=== PATIENT | female | born 1980 | race Caucasian/White ===

== ENCOUNTER 2024-01-03 14:47 | Outpatient (AMB) | payer OTHER, SELFPAY ==
[2024-01-03 14:50] VITALS: BP 144/90; PULSE 79; O2SAT 100; BMI 28.1
--- NOTE | 2024-01-03 14:50 | A.OFFPC_ITS ---
Vital Signs 01/03/24 14:50 Height 5 ft 4 in Weight 164 lb BMI 28.1 BP 144/90 H Blood Pressure Location Lt brachial Position Sitting Pulse 79 Pulse Source Pulse Oximeter Pulse Oximetry (%) 100 Oxygen Delivery Method Room Air Intake Visit Reasons: annual exam/ establish care Rag Boiler Required: No Allergies No Known Allergies Allergy (Verified 01/03/24 15:33) Medication List - Last Reconciled 01/03/24 by Diane Vazquez PA-C leuprolide (Lupron Depot) 3.75 mg IM Q4W levothyroxine 25 mcg PO DAILY norethindrone acetate 5 mg PO BID Tobacco use date assessed: 01/03/24 Dental Screening Dental Screen Date: 01/03/24 Did you have a dental visit in the last 12 months?: Yes Did you have a dental problem in the last 6 months where you did not have access to dental care?: No Was dental information given to patient?: Patient has dentist HPI annual exam/ establish care HPI Details 43-year-old female with no documented [facility] medical history coming to the office for the 1st time. Patient is not known to [place]. Patient did previously follow with PCP in [place] last seen 1 year ago. She did complete her mammogram in May, Pap smear in the last few months and follows routinely with [facility] gynecology. She does have an extensive history of loss and IVF. She follows with [facility] in [place] for fertility care and sees a reproductive DrDenisse Pearson. She also follow up with a counselor florencia every 2 weeks. She did have blood work recently done through [facility] which noted persistently elevated cholesterol. She has no acute concerns today. [facility] Medical History History of in vitro fertilization Uterine polyp Surgical History History of hysteroscopy Family History Mother Diabetes mellitus High cholesterol Father High blood pressure High cholesterol Social History Housing: House Patient Tobacco Use Status: Never used Tobacco service: No Current occupational status: student Current occupation: Cognitive needs: No Hearing needs: No Vision needs: No Female Reproductive History Menstrual control method: pills and progesterone injection Total pregnancies: 4 Ab spontaneous: 4 History of abnormal pap smear: No History of STI: No Date of Mammogram: 05/03/23 History of abnormal mammogram: No Questionnaire PHQ-9 Over the last 2 weeks, how often have you been bothered by any of the following problems? 1. Little interest or pleasure in doing things: not at all 2. Feeling down, depressed, or hopeless: not at all 3. Trouble falling or staying asleep, or sleeping too much: several days 4. Feeling tired or having little energy: not at all 5. Poor appetite or overeating: not at all 6. Feeling bad about yourself - or that you are a failure or have let yourself or your family down: not at all 7. Trouble concentrating on things, such as reading the newspaper or watching television: not at all 8. Moving or speaking so slowly that other people could have noticed. Or the opposite - being so fidgety or restless that you have been moving around a lot more than usual: not at all 9. Thoughts that you would be better off or of hurting yourself in some way: not at all Total score: 1 70397 - PHQ-9 Billing: Yes Source: Developed by Drs. Martin Anthony, Suly Stevenson, Young Braswell and colleagues, with an educational sherine from [employer]. Thrive Questionnaire Date Thrive assessed: 12/28/23 I am a: Patient What is your living situation today?: I have a steady place to live Within the past 12 months, did the food you bought not last and you didn't have the money to get more?: Never true Within the past 12 months, did you worry whether your food would run out before you got money to buy more?: Never true Do you have trouble paying for medicines?: No Do you have trouble getting transportation to medical appointments?: No Do you have trouble paying your heating and electricity bill?: No Do you have trouble taking care of your child, family member or friend?: No Do you have trouble with day-to-day activities such as bathing, preparing meals, shopping, managing finances, etc.?: No Are you currently unemployed and looking for a job?: No Are you interested in more education?: No Please select the resources that you would like help with: None THRIVE Score: 0 AUDIT C Alcohol Use Questionnaire (AUDIT-C) 1. How often do you have a drink containing alcohol?: Never 2. How many drinks containing alcohol do you have on a typical day when you are drinking?: 1 or 2 3. How often do you have six or more drinks on one occasion?: Never Total Score: 0 DOLLY-7 AMB Questionnaire DOLLY-7 Date DOLLY - 7 assessed: 01/03/24 Feeling nervous, anxious, or on edge: 0 = Not at all Not being able to stop or control worryin = Not at all Worrying too much about different things: 0 = Not at all Trouble relaxin = Not at all Being so restless that it is hard to sit still: 0 = Not at all Becoming easily annoyed or irritable: 0 = Not at all Feeling afraid as if something awful might happen: 0 = Not at all Total DOLLY-7 score (0-4 normal; 5-9 mild; 10-14 moderate; 15-21 severe): 0 Source: Developed by Drs. Martin Anthony, Suly Stevenson, Young Braswell and colleagues, with an educational sherine from [employer]. DOLLY-7 Assessment Billing DOLLY-7 Assessment Tool: DOLLY-7 Assessment 43930 Review of Systems Const Denies body aches, Denies chills, Denies fever(s), Denies headache(s) and Denies poor appetite Eyes Reports no additional complaints ENT Denies dysphagia, Denies dizziness, Denies headache(s) and Denies odynophagia Card Denies chest pain, Denies syncope, Denies edema, Denies irregular heart rhythm, Denies lightheadedness and Denies dyspnea Resp Denies cough and Denies dyspnea GI Denies abdominal pain, Denies constipation, Denies dysphagia, Denies diarrhea, Denies nausea, Denies odynophagia and Denies vomiting Reports no additional complaints Musc Reports no additional complaints and Denies abnormal gait Skin/Breast Reports system reviewed and no additional complaints, except as documented Neuro Denies abnormal gait, Denies dizziness, Denies syncope and Denies headache(s) Psych Reports no additional complaints Physical exam (Primary Care) Vital Signs: Last Vital Signs Pulse 79 01/03/24 14:50 BP 144/90 H 01/03/24 14:50 Pulse Ox 100 01/03/24 14:50 Oxygen Delivery Method Room Air 01/03/24 14:50 BMI result Body Mass Index 28.1 Tobacco/Smoking Status: Tobacco use Status Tobacco use date assessed 01/03/24 01/03/24 14:51 Patient Tobacco Use Status Never used Tobacco 01/03/24 14:51 PHQ-9: PHQ-9 Score PHQ-9: Total score 1 01/03/24 15:01 Thrive Assessment: Date of Thrive Assessment Date Thrive assessed 12/28/23 01/03/24 14:51 Const General: cooperative, healthy appearing, comfortable and no acute distress Orientation/consciousness: patient oriented x3 HENMT Head: Yes normocephalic Ears: hearing grossly normal bilaterally General nose exam: Normal external nose present Eyes General: appearance normal, both eyes and all related structures Conjunctivae: conjunctivae normal Neck Neck: Yes full ROM and Yes no lymphadenopathy Resp Effort & Inspection: normal respiratory effort Auscultation: clear to auscultation bilaterally, no crackles, no rales, no rhonchi and no wheezes Cardio Rate: regular rate Rhythm: regular rhythm Skin General skin exam: no rashes or lesions noted Neuro General: patient oriented x3 Gait exam (Neuro): Normal gait present Extrem General: Yes normal to inspection, Yes full ROM and No edema Psych Affect: normal affect Attitude: cooperative Insight: Good insight present (Psych) Judgement: Good judgement present (Psych) Assessment and Plan Assessment & Plan (1) Hypercholesterolemia: Code(s): E78.00 - Pure hypercholesterolemia, unspecified Plan: Cholesterol was elevated on last labs. Referral placed for diet and nutrition and we will redraw labs prior to next appointment. Avoid foods that are high in cholesterol such as red meat, fried foods, eggs and baked goods. Triglyceride goal of less than 150 and LDL goal of less than 130. (2) Endometriosis: Code(s): N80.9 - Endometriosis, unspecified Plan: Continue to follow with gynecology. (3) Anxiety: Code(s): F41.9 - Anxiety disorder, unspecified Plan: Continue to follow with counselor. Has a history of being treated with Zoloft however is avoiding prior to . Does have occasional difficulty sleeping due to anxiety and we will try hydroxyzine as needed. (4) Elevated blood pressure reading: Code(s): R03.0 - Elevated blood-pressure reading, without diagnosis of hypertension Plan: Patient had elevated blood pressure today in the office and mentioned her blood pressure is typically within normal limits when she takes it at home. Advised patient to get a blood pressure cuff and routinely take her blood pressure every other day and re-evaluate at next appointment. Avoid salt intake and encourage healthy diet and regular exercise. Plan This note was constructed using voice recognition software. While every effort has been made to ensure accuracy and research technician, still areas may have been included sometimes these areas may affect the content or meeting of the given symptoms. Total time spent caring for the patient today was 30 minutes. This includes time spent before the visit reviewing the chart, time spent during the visit, and time spent after the visit and documentation. Orders: Orders Lipid Panel 1 Month Z00.00 - Encounter for general adult medical examination without abnormal findings Referrals Nutrition/Dietitian Referral E78.00 - Pure hypercholesterolemia, unspecified Optometry Referral Z00.00 - Encounter for general adult medical examination without abnormal findings Medications: New hydroxyzine HCl 25 mg PO BEDTIME PRN 20 tabs 0RF anxiety Coding Level of Care Code New Pt Level 4 (77883) Diagnoses Hypercholesterolemia E78.00 Endometriosis N80.9 Anxiety F41.9 Elevated blood pressure reading R03.0 Additional Codes DOLLY-7 Assessment Billing - DOLLY-7 Assessment Tool: DOLLY-7 Assessment 37304 ([id number])
== END 2024-01-03 16:04 | disposition home or self-care (01) ==
DX: E78.00 Pure hypercholesterolemia, unspecified (principal); N80.9 Endometriosis, unspecified; F41.9 Anxiety disorder, unspecified; R03.0 Elevated blood-pressure reading, without diagnosis of hypertension
CPT/HCPCS: 96127; 99204

== ENCOUNTER 2024-02-02 09:52 | Outpatient (AMB) | payer OTHER, SELFPAY ==
[2024-02-02 09:54] VITALS: BP 140/72; PULSE 109; O2SAT 97; BMI 28.3
--- NOTE | 2024-02-02 09:54 | MHC.PC.OV ---
Vital Signs 02/02/24 09:54 Height 5 ft 4 in Weight 165 lb BMI 28.3 BP 140/72 H Blood Pressure Location Lt brachial Position Sitting Pulse 109 H Pulse Source Pulse Oximeter Pulse Oximetry (%) 97 Oxygen Delivery Method Room Air Intake Visit Reasons: Annual Exam Chargemaster Specialist Required: No Allergies No Known Allergies Allergy (Verified 02/02/24 09:54) Medication List - Last Reconciled 02/02/24 by Diane Vazquez PA-C hydroxyzine HCl 25 mg PO BEDTIME PRN leuprolide (Lupron Depot) 3.75 mg IM Q4W levothyroxine 25 mcg PO DAILY norethindrone acetate 5 mg PO BID Tobacco use date assessed: 01/03/24 Dental Screening Dental Screen Date: 01/03/24 Did you have a dental visit in the last 12 months?: Yes Did you have a dental problem in the last 6 months where you did not have access to dental care?: No Was dental information given to patient?: Patient has dentist HPI Annual Exam HPI Details 43-year-old female with past medical history of hypercholesterolemia and anxiety last seen December 2023 coming in for annual exam. Patient states she was referred to parts administrator at [facility] to make her 1st appointment so rescheduled to later this month for management of elevated cholesterol. She is currently working with a fertility clinic in [place] and will be undergoing treatment this March and will be started on several different medications at that time. Also mentions on her last pelvic ultrasound they found a polyp on her uterus and will be undergoing hysteroscopy through her fertility clinic in the upcoming months. [facility] Medical History History of in vitro fertilization Uterine polyp Surgical History History of hysteroscopy Family History Mother Diabetes mellitus High cholesterol Father High blood pressure High cholesterol Social History Housing: House Patient Tobacco Use Status: Never used Tobacco service: No Current occupational status: student Current occupation: Cognitive needs: No Hearing needs: No Vision needs: No Questionnaire PHQ-9 Over the last 2 weeks, how often have you been bothered by any of the following problems? 1. Little interest or pleasure in doing things: not at all 2. Feeling down, depressed, or hopeless: not at all 3. Trouble falling or staying asleep, or sleeping too much: several days 4. Feeling tired or having little energy: not at all 5. Poor appetite or overeating: not at all 6. Feeling bad about yourself - or that you are a failure or have let yourself or your family down: not at all 7. Trouble concentrating on things, such as reading the newspaper or watching television: not at all 8. Moving or speaking so slowly that other people could have noticed. Or the opposite - being so fidgety or restless that you have been moving around a lot more than usual: not at all 9. Thoughts that you would be better off or of hurting yourself in some way: not at all Total score: 1 64118 - PHQ-9 Billing: Yes Source: Developed by Drs. Martin Anthony, Suly Stevenson, Young Braswell and colleagues, with an educational sherine from [employer]. Thrive Questionnaire Date Thrive assessed: 12/28/23 I am a: Patient What is your living situation today?: I have a steady place to live Within the past 12 months, did the food you bought not last and you didn't have the money to get more?: Never true Within the past 12 months, did you worry whether your food would run out before you got money to buy more?: Never true Do you have trouble paying for medicines?: No Do you have trouble getting transportation to medical appointments?: No Do you have trouble paying your heating and electricity bill?: No Do you have trouble taking care of your child, family member or friend?: No Do you have trouble with day-to-day activities such as bathing, preparing meals, shopping, managing finances, etc.?: No Are you currently unemployed and looking for a job?: No Are you interested in more education?: No Please select the resources that you would like help with: None Currently or been in a relationship where the following occur: No concerns reported THRIVE Score: 0 AUDIT C Alcohol Use Questionnaire (AUDIT-C) 1. How often do you have a drink containing alcohol?: Never 2. How many drinks containing alcohol do you have on a typical day when you are drinking?: 1 or 2 3. How often do you have six or more drinks on one occasion?: Never Total Score: 0 DOLLY-7 AMB Questionnaire DOLLY-7 Date DOLLY - 7 assessed: 01/03/24 Feeling nervous, anxious, or on edge: 1 = Several days Not being able to stop or control worryin = Several days Worrying too much about different things: 1 = Several days Trouble relaxin = Several days Being so restless that it is hard to sit still: 0 = Not at all Becoming easily annoyed or irritable: 0 = Not at all Feeling afraid as if something awful might happen: 1 = Several days Total DOLLY-7 score (0-4 normal; 5-9 mild; 10-14 moderate; 15-21 severe): 5 Source: Developed by Drs. Martin Anthony, Suly Stevenson, Young Braswell and colleagues, with an educational sherine from [employer]. DOLLY-7 Assessment Billing DOLLY-7 Assessment Tool: DOLLY-7 Assessment 15083 Review of Systems Const Denies body aches, Denies fatigue, Denies fever(s), Denies frequent falls, Denies headache(s) and Denies weakness Eyes Reports no additional complaints and Denies change in vision ENT Denies dysphagia, Denies dizziness, Denies facial pain, Denies headache(s), Denies nasal congestion and Denies odynophagia Card Denies chest pain, Denies syncope, Denies irregular heart rhythm, Denies leg edema, Denies lightheadedness and Denies dyspnea Resp Denies cough and Denies dyspnea GI Denies constipation, Denies dysphagia, Denies dyspepsia, Denies diarrhea, Denies nausea, Denies odynophagia and Denies vomiting Denies urinary frequency, Denies dysuria, Denies urinary hesitancy and Denies urinary urgency Musc Denies back pain and Denies myalgias Skin/Breast Reports system reviewed and no additional complaints, except as documented Neuro Denies dizziness, Denies syncope, Denies frequent falls, Denies headache(s) and Denies weakness Psych Reports no additional complaints Endo Denies fatigue Physical exam (Primary Care) Vital Signs: Last Vital Signs Pulse 109 H 02/02/24 09:54 BP 140/72 H 02/02/24 09:54 Pulse Ox 97 02/02/24 09:54 Oxygen Delivery Method Room Air 02/02/24 09:54 BMI result Body Mass Index 28.3 Tobacco/Smoking Status: Tobacco use Status Tobacco use date assessed 01/03/24 02/02/24 09:54 Patient Tobacco Use Status Never used Tobacco 02/02/24 09:54 PHQ-9: PHQ-9 Score PHQ-9: Total score 1 02/02/24 10:53 Thrive Assessment: Date of Thrive Assessment Date Thrive assessed 12/28/23 02/02/24 09:54 Currently or been in a relationship where the following occur: No concerns reported Const General: cooperative, healthy appearing, comfortable and no acute distress Orientation/consciousness: patient oriented x3 HENMT Head: Yes normocephalic Ears: hearing grossly normal bilaterally, external ears normal, TM's normal bilaterally and EAC's normal General nose exam: Normal external nose present Face and sinus: Yes normal facial exam and Yes sinuses nontender Mouth: Normal oral and palatal mucosa present and tongue normal Throat: Yes posterior oropharynx normal Eyes General: appearance normal, both eyes and all related structures Conjunctivae: conjunctivae normal Pupils: Equal, round and reactive pupils present EOM: EOMs intact bilaterally and No Nystagmus present Neck Neck: Yes normal visual inspection, Yes full ROM and Yes no lymphadenopathy Chest Chest palpation & inspection: normal inspection of the chest Resp Effort & Inspection: normal respiratory effort Auscultation: clear to auscultation bilaterally, no crackles, no rales, no rhonchi, no wheezes and breath sounds present Cardio Rate: regular rate Rhythm: regular rhythm Peripheral pulses: radial pulses present and dorsalis pedis present GI Inspection: Yes normal to inspection and No Abdominal wall edema Palpation (GI): Soft to palpation, not firm and nontender Auscultation: normal bowel sounds Rectal Exam - Female: deferred General: Yes no CVA tenderness Back/Spine/Pelvis Back: no CVA tenderness Skin General skin exam: no rashes or lesions noted Neuro General: patient oriented x3 Cranial nerves: Yes Equal, round and reactive pupils present, Yes Midline tongue present, Yes Ability to bilaterally elevate shoulders present and No Nystagmus present Gait exam (Neuro): Normal gait present Extrem General: Yes normal to inspection, Yes full ROM, No no pedal edema and No edema Psych Speech and movement: Normal speech and movement present Affect: normal affect Insight: Good insight present (Psych) Judgement: Good judgement present (Psych) Coding Level of Care Code Est Pt Level 3 (22501) Est Pt Prev Care 40-64y(56335) Diagnoses Elevated blood pressure reading R03.0 Annual physical exam Z00.00 Anxiety F41.9 Hypercholesterolemia E78.00 Elevated LFTs R79.89 Additional Codes DOLLY-7 Assessment Billing - DOLLY-7 Assessment Tool: DOLLY-7 Assessment 69736 ([id number]) Assessment & Plan Assessment & Plan (1) Elevated blood pressure reading: Code(s): R03.0 - Elevated blood-pressure reading, without diagnosis of hypertension Category: Medical Plan: Blood pressure mildly elevated even when retaken today. Patient states blood pressures at home have been within normal limits and only elevated in the office. Follow up in 3 months with log of blood pressures to guide further management. (2) Annual physical exam: Code(s): Z00.00 - Encounter for general adult medical examination without abnormal findings Category: Medical Plan: Patient is up-to-date on all recommended routine screenings and vaccinations for her age. Blood work is updated and has been addressed during this visit. (3) Anxiety: Code(s): F41.9 - Anxiety disorder, unspecified Category: Medical Plan: Patient has not used hydroxyzine as she was concerned about side effects. Side effects were reviewed with patient during this visit and she will take as needed and monitor for symptoms. (4) Hypercholesterolemia: Code(s): E78.00 - Pure hypercholesterolemia, unspecified Category: Medical Plan: Avoid foods that are high in cholesterol such as red meat, fried foods, eggs and baked goods. Triglyceride goal of less than 150 and LDL goal of less than 130. Triglycerides at goal on last labs and LDL elevated above goal. Discussed possible options for treatment however patient is actively trying to become and advised to ask fertility doctor to guide further management. Patient will meet with parts administrator for further management as well. (5) Elevated LFTs: Code(s): R79.89 - Other specified abnormal findings of blood chemistry Category: Medical Plan: Patient believes the elevated liver function tests are due to the Lupron shot. She is having repeat liver function tests in 1 month through her fertility clinic and would like to defer the abdominal ultrasound until that time. Did discuss with patient if LFTs continue to be elevated recommend ultrasound with hepatitis panel. Plan This note was constructed using voice recognition software. While every effort has been made to ensure accuracy and asphalt paving supervisor, still areas may have been included sometimes these areas may affect the content or meeting of the given symptoms. Total time spent caring for the patient today was 30 minutes. This includes time spent before the visit reviewing the chart, time spent during the visit, and time spent after the visit and documentation. Orders: Orders Lipid Panel 3 Months Z00.00 - Encounter for general adult medical examination without abnormal findings
== END 2024-02-02 10:29 | disposition home or self-care (01) ==
DX: Z00.00 Encounter for general adult medical examination without abnormal findings (principal); R03.0 Elevated blood-pressure reading, without diagnosis of hypertension; F41.9 Anxiety disorder, unspecified; E78.00 Pure hypercholesterolemia, unspecified

== ENCOUNTER → 2024-02-02 09:52 | Outpatient (BNVA) | payer OTHER, SELFPAY | DX: Z00.01 Encounter for general adult medical examination with abnormal findings (principal); R03.0 Elevated blood-pressure reading, without diagnosis of hypertension; F41.9 Anxiety disorder, unspecified; E78.00 Pure hypercholesterolemia, unspecified; R79.89 Other specified abnormal findings of blood chemistry | CPT/HCPCS: 96127 ==

== ENCOUNTER 2024-02-15 10:49 | Outpatient (AMB) | payer OTHER, SELFPAY ==
[2024-02-15 10:58] VITALS: BMI 26.4
--- NOTE | 2024-02-15 10:58 | A.OFFVIS_ITS ---
VS Expanded 02/15/24 10:58 02/22/24 09:12 Height 5 ft 7 in 5 ft 7 in Weight 168 lb 10.458 oz 169 lb BMI 26.4 26.5 Intake Visit Reasons: Pure hypercholesterolemia, unspecified Allergies No Known Allergies Allergy (Verified 02/02/24 09:54) Nutrition Presentation Details: Pt presents for MNT for hypercholesterolemia Pt reports having a variety of foods, home made meals/fast food meals BS Monitoring Most Recent Diabetes Results: No Data to Display DIH-Uzuvhcp-Fn.Jeor Equation Height: 5 ft 7 in Weight: 169 lb Resting Metabolic Rate: 1451.95 Calculated Activity Level: Sedentary Calories Needed to Maintain Weight: 1742.34 Diagnosis Nutrition problem #1: food nutri know defi As related to (etiology) #1: diagnosis As evidenced by (sign/symptom) #1: knowledge deficit of diet [facility] Medical History History of in vitro fertilization Uterine polyp Surgical History History of hysteroscopy Family History Mother Diabetes mellitus High cholesterol Father High blood pressure High cholesterol Social History Housing: House Patient Tobacco Use Status: Never used Tobacco service: No Current occupational status: student Current occupation: Cognitive needs: No Hearing needs: No Vision needs: No Assessment & Plan Assessment & Plan (1) Hypercholesterolemia: Code(s): E78.00 - Pure hypercholesterolemia, unspecified Category: Medical Plan: Wt: 77 Kg (02/21) Est kcal needs as per MSJ: 1700 (40% carb, 30% protein/fat) Est fluid needs as per 25-30 ml/d: 2300 Est prot per day as per 1 g/kg bw: 77 Recommend fiber intake : 8-10 g per day and gradually increase to 25-28 g per day for women and 35-38 g for men or as tolerated Recommend sodium intake per day : less than 2300 mg Educated patient on: ( R = reviewed V = verbalizes understanding N/R = needs review N/A = not applicable * Food sources of carbohydrate, adequate serving sizes and its role in various health conditions: R V N/R * Differences between complex carbohydrates a simple carbohydrates, role of fiber in diet: R V N/R * Lean protein sources of foods: R * Differences between types of fats and role in diet (mono on saturated fat fatty acids, saturated fatty acids, trans fats): R * Food sources of sodium in salt and healthy modifications for heart health in kidney health: R V R/V * Vitamins and minerals: R V N/R * Healthy plate method concept: R * Physical activity: Benefits a precaution: R V N/R Patient Instructions: Choose baked/steamed foods in place of deep fried HAve fish twice a week replacing beef/pork Have water with meals , fruit/herb infused water , reducing on sugary beverages see meal plan ideas low in fat and high fiber keep a food record Coding Level of Care Code Nutr Indiv Intake (42865) Diagnoses Hypercholesterolemia E78.00 Time Spent (min) 30
[2024-02-29 12:06] VITALS: BMI 26.5
== END 2024-02-15 11:40 | disposition home or self-care (01) ==
PROVIDERS: Visit Provider Dietitian, Registered
DX: E78.00 Pure hypercholesterolemia, unspecified (principal)

== ENCOUNTER → 2024-02-15 10:49 | Outpatient (BNVA) | payer OTHER, SELFPAY | PROVIDERS: Visit Provider Dietitian, Registered | DX: E78.00 Pure hypercholesterolemia, unspecified (principal); Z71.3 Dietary counseling and surveillance | CPT/HCPCS: 97802 ==

== ENCOUNTER 2024-06-21 08:54 | Outpatient (REF) | payer OTHER, SELFPAY ==
--- OUTSIDE RECORDS SUMMARY | 2024-06-21 09:16 | XMS_ITS | Patient Health Record ---
Author Organization [facility] Offi ce Address [address] [place] [address] Care Team Providers Care Line Fisher Name Role Phone Annalise Quesada Unavailable [phone] Allergies No Known Allergies Reason For Referral No Information Medications Medication SIG (Take, Route, Fr equency, Duration) Notes Start Date End Date Status predniSONE 10 MG 1 tablet Orally Once a day Active Orilissa 200 MG 1 tablet Orally Twice a day Active Letrozole 2.5 MG 1 tablet Orally Once a day Active Ativan 0.5 MG 1 tablet at bedtime as needed Orally Once a day prn Active metFORMIN HCl ER 500 MG 1 tablet with ev ening meal Orally Once a day Active Problems Problem Type SNOMED Code ICD Code Onset Dates Problem Status W/U Status Risk Notes Problem Urinary tract infectious disease (disorder) (32227180) Urinary tract infection, site not specified (N39.0) Active confirmed Problem Chronic uterine inflammatory disease (792290376) Chronic inflammatory disease of uterus (N71.1) Active confirmed Problem Excessive and frequent menstruation (331047100) Excessive and frequent menstruation with regular cycle (N92.0) Active confirmed Problem Irregular Menstruation (12950240) Other specified irregular menstruation (N92.5) Active confirmed Plan Of Treatment Pending Test Test Name Order Date Urine Test (In House) 11/24/19 22 ULTSND 1st TRI (TV) 02/04/2022 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
--- OUTSIDE RECORDS SUMMARY | 2024-06-21 09:16 | XMS_ITS | Continuity of Care Document ---
Author Organization [facility] Address [address] [place] [address] Phone Care Team Providers Care Demand Manager Name Role Phone Jeferson Vang MD Unavailable [...] For Reporting Only 3 Offic/outpt E&m Estab [facility]-or 2 12 Offic/outpt E&m Estab Minor 10 12 Cl Follow Up Determ Refractive State Offic/outpt E&m Estab Low-[facility] 2 Cl Follow Up Cl Follow Up Ophth Serv Med Exam Comp Est Toric Gas Perm Determ Refractive State Ua Dip Stik/tablet; Wo Micro A 11 Preven Meds E&m Estab Pt; 18-3 11 Offic/outpt E&m Estab [facility] 2 11 Offic/outpt E&m Estab [facility] 2 11 Offic/outpt [facility] Offic/outpt E&m Estab [facility] 2 10 Offic/outpt E&m Est[facility] Offic/outpt E&m Estab Low-mod 9 Offic/outpt E&m Estab Low-mod 9 Offic/outpt E&m Estab Low-mod 9 Offic/outpt E&[facility] Est[facility] 9 Offic/outpt E&[facility] 9 Cl Follow Up Cl Follow Up [...] Date Provider Providers Copied on Encounter [facility], [address] [place] [address], [facility], tel:[phone] Primary Care [facility] No Information 5 Ciera Govea. [facility], [address] [place] [address], [id number], [place]. tel:[phone] [facility], [address] [place] [address], [facility], [place] tel:[phone] Primary Care [facility] Lydia No Information 5 No Information Offic/outpt E&m Estab Mod-hi 2 [facility], [address] [place] [address], [facility], [place] tel:[phone] Primary Care [facility] [place] Insomnia (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) AnxietyInsom moriah 5 No Information Offic/outpt E&m Estab Low-mod [facility], [address] [place] [address], [facility], [place] tel:[phone] Primary Care [facility] [place] Anxiety (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) Body Mass Index between 19-24,Anxiet y 5 Reuben Fraga. [facility], [address] [place] [address], [id number], [place]. tel:[phone] Offic/outpt E&m Estab 5 Min [facility], [address] [place] [address], [facility], [place] tel:[phone] Primary Care [facility] [place] Flu vaccine need 4 No Information [facility], [address] [place] [address], [id number], [place] tel:[phone] Primary Care [facility] [place] Routine Medical Exam 4 No Information Offic/outpt E&m Estab Mod-hi 2 [facility], [address] [place] [address], [facility], [place] tel:[phone] Primary Care [facility] [place] wrist pain (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) Wrist painBody Mass Index between 19-24, 4 No Information [facility], [address] [place], [address], [place] tel:[phone] [facility] [place] No Information 4 No Information Offic/outpt E&m Estab Mod-hi 2 [facility], [address] [place] [address], [address], [place] tel:[phone] Primary [facility] [place] foot complaint (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) Left foot painScreenin g for condition 4 No Information Offic/outpt E&m Estab Mod-hi 2 [facility], [address] [place] [address], [address], [place] tel:[phone] Primary [facility] [place] discuss stopping medications (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)danielle int pain (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) AnxietyMulti ple joint pain 4 No Information [facility], [address] [place] [address], [address], [place] tel:[phone] [facility] [place] Astigmatism 3 No Information [facility], [address] [place] [address], [address], [place] tel:[phone] [facility] [place] Astigmatism 3 No Information [facility], [address] [place] [address], [address], [place] tel:[phone] [facility] [place] Astigmatism 3 No Information Preven Meds E&m Estab Pt; 18-3 [facility], [address] [place] [address], [address], [place] tel:[phone] [facility] [place] physical exam (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) Routine Medical ExamBody Mass Index between 19-24,Anxiet y State NosRoutine Medical Exam 3 No Information Offic/outpt E&m Estab Mod-hi 2 [facility], [address] [place] [address], [address], [place] tel:[phone] Primary [facility] [place] depression (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) Depression with anxiety 2 No Information [facility], [address] [place] [address], [address], [place] tel:[phone] Primary Care [facility] [place] Vitamin D deficiency 2 No Information Offic/outpt E&m Estab Minor 10 [facility], [address] [place] [address], [facility], [place] tel:[phone] [facility] Astigmatism 2 No Information Offic/outpt E&m Estab Low-mod [facility], [address] [place] [address], [facility], [place] tel:[phone] Urgent Care upper respiratory symptoms (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) Acute Sinusitis NosBody Mass Index between 19-24, 2 Arnulfo Nava. [facility], [address] [place] [address], [id number], [place]. tel:[phone] [facility], [address] [place] [address], [facility], [place] tel:[phone] [facility] [place] Astigmatism 2 No Information [facility], [address] [place] [address], [facility], [place] tel:[phone] [facility] [place] Astigmatism 1 No Information [facility], [address] [place] [address], [facility], [place] tel:[phone] [facility] Astigmatism 1 No Information Preven Meds E&m Estab Pt; 18-[address], [facility], [place] tel:[phone] Primary Care [facility] Square physical exam (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) Routine Medical ExamRoutine Medical ExamJoint Pain-shlderA nxiety State Nos 1 No Information Offic/outpt E&m Estab Mod-hi 2 [facility], [address] [place] [address], [facility], [place] tel:[phone] Primary Care [facility] [place] depression (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) No Information 1 No Information Offic/outpt E&m Estab Mod-hi 2 [facility], [address] [place] [address] [place], [address], [place] tel:[phone] Primary [facility] [place] depression (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) Depressive Disorder NecFamily Planning Advice 1 No Information Offic/outpt E&m Estab [facility], [address] [place] [address], [address], [place] tel:[phone] Primary [facility] [place] med for menstraul cramps (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)sk in disorder (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) No Information 0 No Information Offic/outpt E&m Estab [address], [address] [place] [address], [address], [place] tel:[phone] [facility] [place] anxiety (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)PA P test (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) No Information 0 No Information Offic/outpt E&m Estab [facility], [address] [place] [address], [facility], [place] tel:[phone] [facility] [place] anxiety (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) No Information 0 No Information Offic/outpt E&m Estab [facility], [address] [place] [address], [facility], [place] tel:[phone] [facility] [place] anxiety (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) No Information 9 No Information Offic/outpt E&m Estab [facility], [address] [place] [address], [facility], [place] tel:[phone] [facility] [place] anxiety (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) No Information 9 No Information Offic/outpt E&m Estab [facility], [address] [place] [address], [address], [place] tel:[phone] [facility] [place] 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) No Information 9 No Information Offic/outpt E&m Estab [facility], [address] [place] [address], [address], [place] tel:[phone] [facility] [place] anxiety (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) No Information Mat-2 4-200 9 No Information Offic/outpt E&m Estab Low-mod [facility], [address] [place] [address], [facility], tel:[phone] [facility] [place] FVC (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) No Information 2 6200 9 No Information [facility], [address] [place] [address], [facility], tel:[phone] [facility] [place] No Information Jan-2 0-200 8 No Information [facility], [address] [place] [address], [facility], [place] tel:[phone] [facility] [place] No Information Jan-0 6200 8 No Information [facility], [address] [place] [address], [facility], [place] tel:[phone] [facility] [place] No Information Sep-0 8200 8 No Information Offic/outpt E&m Estab Minor 10 [facility], [address] [place] [address], [facility], tel:[phone] [facility] [place] No Information 2 2200 8 No Information Offic/outpt E&m Estab Minor 10 [facility], [address] [place] [address], [facility], [place] tel:[phone] Urgent Care laceration (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) Finger Laceration 2 4200 7 Gt Zeng. [facility], [address] [place] [address], [id number], [place]. tel:[phone] [facility], [address] [place] [address], [facility], [place] tel:[phone] Rad[facility] [place] No Information Jun-1 2-200 7 No Information Offic/outpt E&m Estab Minor 10 [facility], [address] [place] [address], [facility], [place] tel:[phone] [facility] [place] muscular (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) [...] Record Payers Payer name Insurance type Covered green party ID Authoriza tion(s) No Information Social History Type Description Quantity Date Captured Comments Alcohol Use Details Unknown Caffeine Use Details Unknown Tobacco Use Status No Information Smoking Status No Information Sex Female Chief Complaint And Reason For Visit No Information Reason For Referral Reason For Referral No Information Plan Of Treatment Date Type Action Status Future Order: Lab Order Hepatic Function Panel (7) ([id number]), Sent on: Sent Future Order: Lab Order Vitamin D, 25-Hydroxy ([id number]), Sent on: Sent History Of Present Illness [...] to Astigmatism Astigmatism Related to Astig matism Astigmatism OU - New glasses prescribed for patient Related to Astigmatism - Return in 2 week(s ) for Contact Lens Follow Up with Dr. Barth. Related to Astigmatism Astigmatism Related to Astig matism - Return in 2 week(s ) for Contact Lens Follow Up with Dr. Barth. Related to Astigmatism Astigmatism OU - New glasses prescribed for patient No change in glasses prescription Dispense contact lens(es) R4, L4. Related to Astigmatism Astigmatism, OU Related to Astig matism Astigmatism, OU Related to Astig matism Astigmatism, OU Related to Astig matism Astigmatism, OU Related to Astig matism Follow up with PCP if symptoms p ersist Related to Finger Laceration Assessments Type Assessment Date No Information Patient Care Teams Name Effective Dates (start - stop) Status Members No Information
[2024-06-21 10:46] LABS: Cholesterol 297 mg/dL (<200); HDL Cholesterol 86 mg/dL (>40); LDL Cholesterol Calculated 187 mg/dL (<100); Triglycerides 123 mg/dL (<150)
== END 2024-06-21 08:55 | disposition home or self-care (01) ==
LOC: HO.10HDL 08:54
DX: Z00.00 Encounter for general adult medical examination without abnormal findings (principal); Z13.6 Encounter for screening for cardiovascular disorders
CPT/HCPCS: 36415; 80061

== ENCOUNTER 2024-06-26 14:19 | Outpatient (AMB) | payer OTHER, SELFPAY ==
--- NOTE | 2024-06-26 14:43 | A.OFFPC_ITS ---
Vital Signs 06/26/24 14:46 Height 5 ft 7 in Weight 169 lb 8 oz BMI 26.5 BP 120/62 Blood Pressure Location Lt brachial Position Sitting Pulse 140 H Pulse Source Pulse Oximeter Temp 97.5 F Temp Source Temporal Artery Scan Pulse Oximetry (%) 100 Oxygen Delivery Method Room Air Intake Visit Reasons: f/u HTN and HLD Intake Note: Patient is here to follow up on HTN, HLD. Visual Merchandising Specialist Required: No Slot Router: Not Required per policy Accompanied by: Self / Same As Patient Allergies No Known Allergies Allergy (Verified 06/26/24 14:46) Medication List - Last Reconciled 06/26/24 by Diane Vazquez PA-C hydroxyzine HCl 25 mg PO BEDTIME PRN levothyroxine 50 mcg PO DAILY Tobacco use date assessed: 06/26/24 Dental Screening Dental Screen Date: 06/26/24 Did you have a dental visit in the last 12 months?: Yes Did you have a dental problem in the last 6 months where you did not have access to dental care?: No Was dental information given to patient?: Patient has dentist HPI f/u HTN and HLD HPI Details 44-year-old female with past medical his tory of hypercholesterolemia and anxiety last seen 01/2024 coming in for follow up.? In review of the notes patient was seen by endocrinology for diet and nutrition. Last blood work revealing KAYKAY positive.?Currently working with a fertility specialist and desires . Presenting with concerns regarding blood pressure management post-miscarriage and anxiety-inducing situations. A miscarriage was noted a few weeks prior, with subsequent D&C performed to ensure uterine clearance. Initial elevated blood pressure readings were registered, which diminished after follow-up evaluations. She has a documented history of hyperlipidemia, with persistently high cholesterol requiring consideration of statin therapy. The engagement of dual fertility specialists underscores her dedicated attempts despite recurrent miscarriages and hormonal treatment for endometriosis suppression. Psychiatric history comprises longstanding anxiety and health anxiety, previously managed through pharmacological interventions including SSRIs, though these incurred adverse sexual side effects. Current sleep disturbances are targeted through non-SSRI interventions, with hydroxyzine offering partial symptom relief. [facility] Medical History (Updated 06/26/24 @ 15:26 by Diane Vazquez PA-C) History of in vitro fertilization Uterine polyp Surgical History (Updated 06/26/24 @ 14:53 by WARNER Steven) History of D&C History of hysteroscopy Family History Mother Diabetes mellitus High cholesterol Father High blood pressure High cholesterol Social History Housing: House Alcohol intake: never Patient Tobacco Use Status: Never used Tobacco e-Cigarette/Vaping Use: Never Used Second Hand Smoke Exposure: No service: No Current occupational status: student Current occupation: Cognitive needs: No Hearing needs: No Vision needs: Yes (Glasses) Questionnaire PHQ-9 Over the last 2 weeks, how often have you been bothered by any of the following problems? 1. Little interest or pleasure in doing things: not at all 2. Feeling down, depressed, or hopeless: not at all 3. Trouble falling or staying asleep, or sleeping too much: not at all 4. Feeling tired or having little energy: not at all 5. Poor appetite or overeating: not at all 6. Feeling bad about yourself - or that you are a failure or have let yourself or your family down: not at all 7. Trouble concentrating on things, such as reading the newspaper or watching television: not at all 8. Moving or speaking so slowly that other people could have noticed. Or the opposite - being so fidgety or restless that you have been moving around a lot more than usual: not at all 9. Thoughts that you would be better off or of hurting yourself in some way: not at all Total score: 0 Depression Screening Interpretation: Negative Depression Screening Done: Yes Source: Developed by Drs. Martin Anthony, Suly Stevenson, Young Braswell and colleagues, with an educational sherine from [employer]. Thrive Questionnaire Date Thrive assessed: 06/26/24 I am a: Patient What is your living situation today?: I have a steady place to live Within the past 12 months, did the food you bought not last and you didn't have the money to get more?: Never true Within the past 12 months, did you worry whether your food would run out before you got money to buy more?: Never true Do you have trouble paying for medicines?: No Do you have trouble getting transportation to medical appointments?: No Do you have trouble paying your heating and electricity bill?: No Do you have trouble taking care of your child, family member or friend?: No Do you have trouble with day-to-day activities such as bathing, preparing meals, shopping, managing finances, etc.?: No Are you currently unemployed and looking for a job?: No Are you interested in more education?: No Please select the resources that you would like help with: None Currently or been in a relationship where the following occur: No concerns reported THRIVE Score: 0 AUDIT C Alcohol Use Questionnaire (AUDIT-C) 1. How often do you have a drink containing alcohol?: Never 3. How often do you have six or more drinks on one occasion?: Never Total Score: 0 DOLLY-7 AMB Questionnaire DOLLY-7 Date DOLLY - 7 assessed: 06/26/24 Feeling nervous, anxious, or on edge: 3 = Nearly every day Not being able to stop or control worryin = Nearly every day Worrying too much about different things: 3 = Nearly every day Trouble relaxin = More than half the days Being so restless that it is hard to sit still: 2 = More than half the days Becoming easily annoyed or irritable: 0 = Not at all Feeling afraid as if something awful might happen: 2 = More than half the days Total DOLLY-7 score (0-4 normal; 5-9 mild; 10-14 moderate; 15-21 severe): 15 Source: Developed by Drs. Martin Anthony, Suly Stevenson, Young Braswell and colleagues, with an educational sherine from [employer]. Review of Systems Const Denies body aches, Denies chills, Denies fever(s), Denies headache(s) and Denies poor appetite Eyes Reports no additional complaints ENT Denies dysphagia, Denies dizziness, Denies headache(s) and Denies odynophagia Card Denies chest pain, Denies syncope, Denies edema, Denies irregular heart rhythm, Denies lightheadedness and Denies dyspnea Resp Denies cough and Denies dyspnea GI Denies abdominal pain, Denies constipation, Denies dysphagia, Denies diarrhea, Denies nausea, Denies odynophagia and Denies vomiting Reports no additional complaints Musc Reports no additional complaints and Denies abnormal gait Skin/Breast Reports system reviewed and no additional complaints, except as documented Neuro Denies abnormal gait, Denies dizziness, Denies syncope and Denies headache(s) Psych Reports no additional complaints Physical exam (Primary Care) Tobacco/Smoking Status: Tobacco use Status Tobacco use date assessed 01/03/24 02/02/24 09:54 Patient Tobacco Use Status Never used Tobacco 02/02/24 09:54 Depression Screening Interpretation: Negative Thrive Assessment: Date of Thrive Assessment Date Thrive assessed 06/26/24 06/26/24 14:20 Currently or been in a relationship where the following occur: No concerns reported Const General: cooperative, healthy appearing, comfortable and no acute distress Orientation/consciousness: patient oriented x3 HENMT Head: Yes normocephalic Ears: hearing grossly normal bilaterally General nose exam: Normal external nose present Eyes General: appearance normal, both eyes and all related structures Conjunctivae: conjunctivae normal Neck Neck: Yes full ROM and Yes no lymphadenopathy Resp Effort & Inspection: normal respiratory effort Auscultation: clear to auscultation bilaterally, no crackles, no rales, no rhonchi and no wheezes Cardio Rate: regular rate Rhythm: regular rhythm Skin General skin exam: no rashes or lesions noted Neuro General: patient oriented x3 Gait exam (Neuro): Normal gait present Extrem General: Yes normal to inspection, Yes full ROM and No edema Psych Affect: normal affect Attitude: cooperative Insight: Good insight present (Psych) Judgement: Good judgement present (Psych) Coding Level of Care Code Est Pt Level 4 (98819) Diagnoses Elevated blood pressure reading R03.0 Anxiety F41.9 Hypercholesterolemia E78.00 Infertility, female N97.9 Assessment & Plan Assessment & Plan (1) Elevated blood pressure reading: Code(s): R03.0 - Elevated blood-pressure reading, without diagnosis of hypertension Category: Medical Plan: Blood pressure has been maintaining at home at a normal range and blood pressure in the office today is normal as well. Continue to monitor at home. (2) Anxiety: Code(s): F41.9 - Anxiety disorder, unspecified Category: Medical Plan: Patient having history of anxiety previously treated with Zoloft. She discussed with the fertility specialists who was on board with patient maintaining on Zoloft throughout . Prescription sent today. (3) Hypercholesterolemia: Code(s): E78.00 - Pure hypercholesterolemia, unspecified Category: Medical Plan: Avoid foods that are high in cholesterol such as red meat, fried foods, eggs and baked goods. Triglyceride goal of less than 150 and LDL goal of less than 130. Plan to start on low-dose simvastatin 5 mg and repeat cholesterol labs in 3 months. Advised patient if she is going to try for another to reach out to the office we can discontinue this medication. (4) Infertility, female: Code(s): N97.9 - Female infertility, unspecified Category: Medical Plan: Continue to follow with reproductive and fertility specialists. Plan Patient was informed and verbally consented to the use of an ambient scribe for clinic note documentation during this visit. This note was constructed using voice recognition software. While every effort has been made to ensure accuracy and clinician oncology, still areas may have been included sometimes these areas may affect the content or meeting of the given symptoms. Total time spent caring for the patient today was 20 minutes. This includes time spent before the visit reviewing the chart, time spent during the visit, and time spent after the visit and documentation. Orders: Orders Lipid Panel 3 Months E78.00 - Pure hypercholesterolemia, unspecified Medications: New simvastatin 5 mg PO BEDTIME 90 tabs 0RF sertraline 25 mg PO DAILY 90 tabs 1RF Refilled hydroxyzine HCl 25 mg PO BEDTIME PRN 30 tabs 1RF anxiety
[2024-06-26 14:46] VITALS: BP 120/62; PULSE 140; TEMP 36.4; O2SAT 100; BMI 26.5
--- OUTSIDE RECORDS SUMMARY | 2024-06-26 17:45 | XMS_ITS | Continuity of Care Document ---
Author Organization [facility] Address [address] [place] [address] Phone Care Team Providers Care Control Room Operator Name Role Phone Jeferson Vang MD Unavailable [...] For Reporting Only 3 Offic/outpt E&m Estab [facility] 2 12 Offic/outpt E&m Estab Minor 10 12 Cl Follow Up Determ Refractive State Offic/outpt E&m Estab [place] [place] Cl Follow Up Cl Follow Up Ophth Serv Med Exam Comp Est Toric Gas Perm Determ Refractive State Ua Dip Stik/tablet; Wo Micro A 11 Preven Meds E&m Estab Pt; 18-3 11 Offic/outpt E&m Estab [facility] 2 11 Offic/outpt E&m Estab [facility] 2 11 Offic/outpt E&[facility] Est[facility] Offic/outpt E&m Estab [facility] 2 10 Offic/outpt E&m Estab [facility] Offic/outpt E&m Estab Low-mod 9 Offic/outpt E&m Estab Low-mod 9 Offic/outpt E&m Estab Low-mod 9 Offic/outpt E&m Estab [facility] Offic/outpt E&m Estab [facility] Cl Follow Up Cl Follow Up [...] Diagnoses Date Provider Providers Copied on Encounter [facility], [address] [place] [address], [facility], tel:[phone] [facility] No Information 5 Ciera Govea. [facility], [address] [place] [address], [id number], [place]. tel:[phone] [facility], [address] [place] [address], [facility], [place] tel:[phone] Primary Care [facility] Lydia No Information 5 No Information Offic/outpt E&m Estab Mod-hi 2 [facility], [address] [place] [address], [facility], [place] tel:[phone] Primary Care [facility] Lydia Insomnia (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) AnxietyInsom moriah 5 No Information Offic/outpt E&m Estab Low-mod [facility], [address] [place] [address], [facility], [place] tel:[phone] Primary [facility] [place] Anxiety (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) Body Mass Index between 19-24,Anxiet y 5 Reuben Fraga. [facility], [address] [place] [address], [id number], [place]. tel:[phone] Offic/outpt E&m Estab 5 Min [facility], [address] [place] [address], [facility], [place] tel:[phone] [facility] [place] Flu vaccine need 4 No Information [facility], [address] [place] [address], [address], [place] tel:[phone] [facility] [place] Routine Medical Exam 4 No Information Offic/outpt E&m Estab Mod-hi 2 [facility], [address] [place] [address], [facility], [place] tel:[phone] Primary [facility] [place] wrist pain (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) Wrist painBody Mass Index between 19-24, 4 No Information [facility], [address] [place], [address], [place] tel:[phone] [facility] [place] No Information 4 No Information Offic/outpt E&m Estab Mod-hi 2 [facility], [address] [place] [address], [address], [place] tel:[phone] [facility] [place] foot complaint (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) Left foot painScreenin g for condition 4 No Information Offic/outpt E&m Estab Mod-hi 2 [facility], [address] [place] [address], [address], [place] tel:[phone] [facility] [place] discuss stopping medications (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)danielle int pain (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) AnxietyMulti ple joint pain 4 No Information [facility], [address] [place] [address], [address], [place] tel:[phone] [facility] [place] Astigmatism 3 No Information [facility], [address] [place] [address], [address], [place] tel:[phone] [facility] [place] Astigmatism 3 No Information [facility], [address] [place] [address], [address], [place] tel:[phone] [facility] [place] Astigmatism 3 No Information Preven Meds E&m Estab Pt; 18-3 [facility], [address] [place] [address], [address], [place] tel:[phone] [facility] [place] physical exam (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) Routine Medical ExamBody Mass Index between 19-24,Anxiet y State NosRoutine Medical Exam 3 No Information Offic/outpt E&m Estab Mod-hi 2 [facility], [address] [place] [address], [address], [place] tel:[phone] [facility] [place] depression (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) Depression with anxiety 2 No Information [facility], [address] [place] [address], [address], [place] tel:[phone] Primary [facility] [place] Vitamin D deficiency 2 No Information Offic/outpt E&m Estab Minor 10 [facility], [address] [place] [address], [facility], [place] tel:[phone] [facility] Astigmatism 2 No Information Offic/outpt E&m Estab Low-mod [facility], [address] [place] [address], [facility], [place] tel:[phone] Urgent Care upper respiratory symptoms (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) Acute Sinusitis NosBody Mass Index between 19-24, 2 Arnulfo Nava. [facility], [address] [place] [address], [id number], [place]. tel:[phone] [facility], [address] [place] [address], [facility], [place] tel:[phone] [facility] [place] Astigmatism 2 No Information [facility], [address] [place] [address], [facility], [place] tel:[phone] [facility] [place] Astigmatism 1 No Information [facility], [address] [place] [address], [facility], [place] tel:[phone] [facility] Astigmatism 1 No Information Preven Meds E&m Estab Pt; 18-[address], [facility], [place] tel:[phone] [facility] [place] physical exam (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) Routine Medical ExamRoutine Medical ExamJoint Pain-shlderA nxiety State Nos 1 No Information Offic/outpt E&m Estab Mod-hi 2 [facility], [address] [place] [address], [facility], [place] tel:[phone] [facility] [place] depression (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) No Information 1 No Information Offic/outpt E&m Estab Mod-hi 2 [facility], [address] [place] [address] [place], [address], [place] tel:[phone] [facility] [place] depression (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) Depressive Disorder NecFamily Planning Advice 1 No Information Offic/outpt E&m Estab [facility], [address] [place] [address], [address], [place] tel:[phone] [facility] [place] med for menstraul cramps (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)sk in disorder (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) No Information 0 No Information Offic/outpt E&m Estab [address], [address] [place] [address], [address], [place] tel:[phone] [facility] [place] anxiety (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)PA P test (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) No Information 0 No Information Offic/outpt E&m Estab [facility], [address] [place] [address], [facility], [place] tel:[phone] [facility] [place] anxiety (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) No Information 0 No Information Offic/outpt E&m Estab [facility], [address] [place] [address], [facility], [place] tel:[phone] [facility] [place] anxiety (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) No Information 9 No Information Offic/outpt E&m Estab [facility], [address] [place] [address], [facility], [place] tel:[phone] [facility] [place] anxiety (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) No Information 9 No Information Offic/outpt E&m Estab [facility], [address] [place] [address], [address], [place] tel:[phone] [facility] [place] 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 (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) No Information 9 No Information Offic/outpt E&m Estab [facility], [address] [place] [address], [address], [place] tel:[phone] [facility] [place] anxiety (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) No Information Mat-2 4-200 9 No Information Offic/outpt E&m Estab Low-mod [facility], [address] [place] [address], [facility], tel:[phone] [facility] [place] FVC (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) No Information 2 6200 9 No Information [facility], [address] [place] [address], [facility], tel:[phone] [facility] [place] No Information Jan-2 0-200 8 No Information [facility], [address] [place] [address], [facility], [place] tel:[phone] [facility] [place] No Information Jan-0 6200 8 No Information [facility], [address] [place] [address], [facility], [place] tel:[phone] [facility] [place] No Information Sep-0 8200 8 No Information Offic/outpt E&m Estab Minor 10 [facility], [address] [place] [address], [facility], tel:[phone] [facility] [place] No Information 2 2200 8 No Information Offic/outpt E&m Estab Minor 10 [facility], [address] [place] [address], [facility], [place] tel:[phone] Urgent Care laceration (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) Finger Laceration 2 4200 7 Gt Zeng. [facility], [address] [place] [address], [id number], [place]. tel:[phone] [facility], [address] [place] [address], [facility], [place] tel:[phone] Radiology [place] No Information Jun-1 2-200 7 No Information Offic/outpt E&m Estab Minor 10 [facility], [address] [place] [address], [facility], [place] tel:[phone] [facility] [place] muscular (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) [...] Record Payers Payer name Insurance type Covered constitution party ID Authoriza tion(s) No Information Social [...] Order: Lab Order Hepatic Function Panel (7) ([id number]), Sent on: Sent Future Order: Lab Order Vitamin D, 25-Hydroxy ([id number]), Sent on: Sent History Of Present Illness [...] Exam with Dr. Barth Related to Astigmatism Astigmatism OU - New glasses prescribed for patient Optimal contact lens fit Order contact lens(es) R7, L7. Discussed risks of contact lens wear Related to Astigmatism Prescribe medications Related to Acute sinusitis Review medication side effects R elated to Acute sinusitis Follow up with PCP if symptoms p ersist Related to Acute sinusitis Astigmatism OU - [...]
--- OUTSIDE RECORDS SUMMARY | 2024-06-26 17:45 | XMS_ITS | Patient Health Record ---
Author Organization [facility] Address [address] [place] [address] Care Team Providers Care Network Control Supervisor Name Role Phone Annalise Quesada Unavailable [phone] Allergies No Known Allergies Reason For Referral [...] Notes Problem Urinary tract infectious disease (disorder) (94944392) Urinary tract infection, site not specified (N39.0) Active confirmed Problem Chronic uterine inflammatory disease (252101885) Chronic inflammatory disease of uterus (N71.1) Active confirmed Problem Excessive and frequent menstruation (249149133) Excessive and frequent menstruation with regular cycle (N92.0) Active confirmed Problem Irregular Menstruation (30150840) Other specified irregular menstruation (N92.5) Active confirmed Plan Of Treatment Pending Test Test Name Order Date Urine Test (In House) 11/24/19 22 ULTSND 1st TRI (TV) 02/04/2022 SONO IT SUPPORT CONSULTANT (TV) 12/03/2021 Future Test Test Name Order Date B-HCG (QUANT) 11/23/2021 Insurance Providers Payer Name Payer Address Payer Phone Subscriber Number Group Number Insured Name Patient Relationship to Insured Coverage Start Date Coverage End Date [employer] (Patricia calvin) [address] [address] [place], [place] [id number] Shavon Dai Self - patient is the insured Medical (General) History Medical History History ICD Code Anxiety Surgical History Surgery Date(Month/Year) Laparascopy, hysteroscopy, D and C. train planner mopertubation 05/03/2021 [place] teeth IVF retieval 09/03/2021 IVF retrieval 08/05/2021 IVF retrieval 11/06/2020 hysteroscopy 02/17/2020 IVF retrieval 01/15/2020 IVF retrieval 02/07/2019 IVF retrieval 12/08/2018
== END 2024-06-26 15:25 | disposition home or self-care (01) ==
DX: R03.0 Elevated blood-pressure reading, without diagnosis of hypertension (principal); F41.9 Anxiety disorder, unspecified; E78.00 Pure hypercholesterolemia, unspecified; N97.9 Female infertility, unspecified

== ENCOUNTER 2024-09-20 10:36 | Outpatient (REF) | payer OTHER, SELFPAY ==
--- OUTSIDE RECORDS SUMMARY | 2024-09-20 10:41 | XMS_ITS | Patient Health Record ---
Author Organization [facility] Address [address] [place] [address] Care Team Providers Care Heater Engineer Helper Name Role Phone Annalise Quesada Unavailable [phone] Allergies No Known Allergies Reason For Referral [...] Notes Problem Urinary tract infectious disease (disorder) (48534372) Urinary tract infection, site not specified (N39.0) Active confirmed Problem Chronic uterine inflammatory disease (406945561) Chronic inflammatory disease of uterus (N71.1) Active confirmed Problem Excessive and frequent menstruation (891446644) Excessive and frequent menstruation with regular cycle (N92.0) Active confirmed Problem Irregular Menstruation (03206272) Other specified irregular menstruation (N92.5) Active confirmed Plan Of Treatment Pending Test Test Name Order Date Urine Test (In House) 11/24/19 22 ULTSND 1st TRI (TV) 02/04/2022 SONO CAMPGROUND ATTENDANT (TV) 12/03/2021 Future Test Test Name Order Date B-HCG (QUANT) 11/23/2021 Insurance Providers Payer Name Payer Address Payer Phone Subscriber Number Group Number Insured Name Patient Relationship to Insured Coverage Start Date Coverage End Date [employer] (Patricia calvin) [address] [address] [place], [place] [id number] Shavon Dai Self - patient is the insured Medical (General) History Medical History History ICD Code Anxiety Surgical History Surgery Date(Month/Year) Laparascopy, hysteroscopy, D and C. installation engineer mopertubation 05/03/2021 [place] teeth IVF retieval 09/03/2021 IVF retrieval 08/05/2021 IVF retrieval 11/06/2020 hysteroscopy 02/17/2020 IVF retrieval 01/15/2020 IVF retrieval 02/07/2019 IVF retrieval 12/08/2018
[2024-09-20 14:06] LABS: Cholesterol 216 mg/dL (<200); HDL Cholesterol 66 mg/dL (>40); LDL Cholesterol Calculated 135 mg/dL (<100); Triglycerides 78 mg/dL (<150)
== END 2024-09-20 10:37 | disposition home or self-care (01) ==
LOC: HO.10HDL 10:36
DX: E78.00 Pure hypercholesterolemia, unspecified (principal)
CPT/HCPCS: 36415; 80061

== ENCOUNTER 2024-09-24 11:27 | Outpatient (AMB) | payer OTHER, SELFPAY ==
--- NOTE | 2024-09-24 11:36 | MHC.PC.OV ---
Vital Signs 09/24/24 11:38 09/24/24 11:58 Height 5 ft 7 in Weight 169 lb 2 oz BMI 26.5 BP 130/80 Blood Pressure Location Lt brachial Position Sitting Pulse 152 H 86 Pulse Source Pulse Oximeter Auscultation Temp 97.3 F Temp Source Temporal Artery Scan Pulse Oximetry (%) 100 Oxygen Delivery Method Room Air Intake Visit Reasons: f/u HLD Intake Note: Patient is here to follow up on HLD. Development Expert Required: No Special Education Director: Not Required per policy Accompanied by: Self / Same As Patient Allergies simvastatin Adverse Reaction (Intermediate, Verified 09/24/24 11:45) Sore muscle Medication List - Last Reconciled 09/24/24 by Diane Vazquez PA-C hydroxyzine HCl 50 mg PO BEDTIME levothyroxine 50 mcg PO DAILY sertraline 25 mg PO DAILY Tobacco use date assessed: 09/24/24 Dental Screening Dental Screen Date: 06/26/24 HPI f/u HLD HPI Details 44-year-old female with past medical history of hypercholesterolemia and anxiety last seen 06/2024 coming in for follow up.?Patient was started on Zoloft at her last visit as well as simvastatin and was advised at her last visit if she was to become or start trying she needed to discontinue the medication. Presenting with concerns over anxiety and health monitoring. She reports significant health anxiety, with her heart rate spiking during stressful or clinical encounters, and expresses fear about high cholesterol and potential cardiovascular events. She has stopped taking simvastatin due to muscle soreness, hypercholesterolemia has been a long-standing issue, present since her early twenties. She also has concerns regarding fertility and has been exploring the use of donor eggs and potential fertility treatments, planning to use Zoloft when closer to attempting conception. The patient also reports a small, hardening bump on the inside of her elbow, likely a lipoma. She does have concerns about her heart rate however most time during the day she is within a normal range for heart rate and denies any chest pains or shortness of breath or any other symptoms in conjunction with tachycardia. [facility] Medical History History of in vitro fertilization Uterine polyp Surgical History History of D&C History of hysteroscopy Family History Mother Diabetes mellitus High cholesterol Father High blood pressure High cholesterol Social History Housing: House Alcohol intake: never Patient Tobacco Use Status: Never used Tobacco e-Cigarette/Vaping Use: Never Used Second Hand Smoke Exposure: No service: No Current occupational status: student Current occupation: Cognitive needs: No Hearing needs: No Vision needs: Yes (Glasses) Questionnaire PHQ-9 Over the last 2 weeks, how often have you been bothered by any of the following problems? 1. Little interest or pleasure in doing things: not at all 2. Feeling down, depressed, or hopeless: not at all 3. Trouble falling or staying asleep, or sleeping too much: several days 4. Feeling tired or having little energy: not at all 5. Poor appetite or overeating: not at all 6. Feeling bad about yourself - or that you are a failure or have let yourself or your family down: not at all 7. Trouble concentrating on things, such as reading the newspaper or watching television: not at all 8. Moving or speaking so slowly that other people could have noticed. Or the opposite - being so fidgety or restless that you have been moving around a lot more than usual: not at all 9. Thoughts that you would be better off or of hurting yourself in some way: not at all Total score: 1 Depression Screening Interpretation: Negative Depression Screening Done: Yes Source: Developed by Drs. Martin Anthony, Suly Stevenson, Young Braswell and colleagues, with an educational sherine from [employer]. Thrive Questionnaire Date Thrive assessed: 06/26/24 I am a: Patient What is your living situation today?: I have a steady place to live Within the past 12 months, did the food you bought not last and you didn't have the money to get more?: Never true Within the past 12 months, did you worry whether your food would run out before you got money to buy more?: Never true Do you have trouble paying for medicines?: No Do you have trouble getting transportation to medical appointments?: No Do you have trouble paying your heating and electricity bill?: No Do you have trouble taking care of your child, family member or friend?: No Do you have trouble with day-to-day activities such as bathing, preparing meals, shopping, managing finances, etc.?: No Are you currently unemployed and looking for a job?: No Are you interested in more education?: No Please select the resources that you would like help with: None Currently or been in a relationship where the following occur: No concerns reported THRIVE Score: 0 AUDIT C Alcohol Use Questionnaire (AUDIT-C) 1. How often do you have a drink containing alcohol?: Never 2. How many drinks containing alcohol do you have on a typical day when you are drinking?: 1 or 2 Total Score: 0 DOLLY-7 AMB Questionnaire DOLLY-7 Date DOLLY - 7 assessed: 09/24/24 Feeling nervous, anxious, or on edge: 1 = Several days Not being able to stop or control worryin = Several days Worrying too much about different things: 1 = Several days Trouble relaxin = Not at all Being so restless that it is hard to sit still: 0 = Not at all Becoming easily annoyed or irritable: 0 = Not at all Feeling afraid as if something awful might happen: 1 = Several days Total DOLLY-7 score (0-4 normal; 5-9 mild; 10-14 moderate; 15-21 severe): 4 Source: Developed by Drs. Martin Anthony, Suly Stevenson, Young Braswell and colleagues, with an educational sherine from [employer]. Review of Systems Const Denies body aches, Denies chills, Denies fever(s), Denies headache(s) and Denies poor appetite Eyes Reports no additional complaints ENT Denies dizziness and Denies headache(s) Card Denies chest pain, Denies irregular heart rhythm, Denies lightheadedness and Denies dyspnea Resp Denies cough and Denies dyspnea GI Denies abdominal pain, Denies constipation, Denies diarrhea, Denies nausea and Denies vomiting Reports no additional complaints Musc Reports no additional complaints and Denies abnormal gait Skin/Breast Reports system reviewed and no additional complaints, except as documented Neuro Denies abnormal gait, Denies dizziness and Denies headache(s) Psych Reports no additional complaints Physical exam (Primary Care) Vital Signs: Last Vital Signs Temp 97.3 F 09/24/24 11:38 Pulse 86 09/24/24 11:58 BP 130/80 09/24/24 11:38 Pulse Ox 100 09/24/24 11:38 Oxygen Delivery Method Room Air 09/24/24 11:38 BMI result Body Mass Index 26.5 Tobacco/Smoking Status: Tobacco use Status Tobacco use date assessed 09/24/24 09/24/24 11:39 Patient Tobacco Use Status Never used Tobacco 09/24/24 11:39 e-Cigarette/Vaping Use Never Used 09/24/24 11:39 PHQ-9: PHQ-9 Score PHQ-9: Total score 1 09/24/24 11:46 Depression Screening Interpretation: Negative Thrive Assessment: Date of Thrive Assessment Date Thrive assessed 06/26/24 09/24/24 11:39 Currently or been in a relationship where the following occur: No concerns reported Const General: cooperative, healthy appearing, comfortable and no acute distress Orientation/consciousness: patient oriented x3 HENMT Head: Yes normocephalic Ears: hearing grossly normal bilaterally General nose exam: Normal external nose present Eyes General: appearance normal, both eyes and all related structures Conjunctivae: conjunctivae normal Neck Neck: Yes full ROM and Yes no lymphadenopathy Resp Effort & Inspection: normal respiratory effort Auscultation: clear to auscultation bilaterally, no crackles, no rales, no rhonchi and no wheezes Cardio Rate: regular rate Rhythm: regular rhythm Skin General skin exam: no rashes or lesions noted Full body images: 1. Small nontender mass Neuro General: patient oriented x3 Gait exam (Neuro): Normal gait present Extrem General: Yes normal to inspection, Yes full ROM and No edema Psych Affect: normal affect Attitude: cooperative Insight: Good insight present (Psych) Judgement: Good judgement present (Psych) Coding Level of Care Code Est Pt Level 3 (37009) Diagnoses Hypercholesterolemia E78.00 Tachycardia R00.0 Anxiety F41.9 Soft tissue mass M79.89 Assessment & Plan Assessment & Plan (1) Hypercholesterolemia: Code(s): E78.00 - Pure hypercholesterolemia, unspecified Category: Medical Plan: Avoid foods that are high in cholesterol such as red meat, fried foods, eggs and baked goods. Triglyceride goal of less than 150 and LDL goal of less than 130. Plan to obtain new labs and can consider low-dose of different statin after symptoms resolve. Patient was started on simvastatin 5 mg after her last visit she did develop muscle soreness as well as abdominal bloating and gas which has mostly resolved but still remains very mildly. (2) Tachycardia: Code(s): R00.0 - Tachycardia, unspecified Category: Medical Plan: Patient having tachycardia it did normalized while we were in the exam today. Given elevated heart rate plan to obtain Holter monitor for further evaluation and referral was placed to cardiology at patient request. (3) Anxiety: Code(s): F41.9 - Anxiety disorder, unspecified Category: Medical Plan: Patient trying to hold off on using Zoloft at this time. She does feel she manages her symptoms fairly well but does notice them spike in clinical settings. Continue to use hydroxyzine 75 mg at bedtime. (4) Soft tissue mass: Code(s): M79.89 - Other specified soft tissue disorders Category: Medical Plan: There is a palpable nontender small mass on the lateral aspect of the left elbow with smooth borders. At this time plan to observe the mass advised patient to continue to monitor at this time and if it begins to grow, change or develop overlying skin changes to reach out to the office. Plan The patient's discontinuation of simvastatin due to muscle soreness will be followed with a re-evaluation of cholesterol levels in two months. A Holter monitor will assess her heart rate variability to separate anxiety-induced tachycardia from organic causes. Propranolol remains an optional treatment for anxiety-related transient tachycardia. The patient will continue psychological counseling and now has a more flexible prescription for hydroxyzine. Consideration of Zoloft use will align with her fertility plans. We have discussed monitoring her elbow lipoma to watch for significant changes requiring surgical assessment. This note was constructed using voice recognition software. While every effort has been made to ensure accuracy and national coverage specialist, still areas may have been included sometimes these areas may affect the content or meeting of the given symptoms. Total time spent caring for the patient today was 20 minutes. This includes time spent before the visit reviewing the chart, time spent during the visit, and time spent after the visit and documentation. Patient was informed and verbally consented to the use of an ambient scribe for clinic note documentation during this visit. Orders: Orders ECG 3 day holter monitor Today R00.0 - Tachycardia, unspecified Referrals Cardiology Referral E78.00 - Pure hypercholesterolemia, unspecified, R00.0 - Tachycardia, unspecified Medications: New hydroxyzine HCl 75 mg (3 x 25 mg) PO BEDTIME 90 tabs 0RF for anxiety simethicone (Gas Relief (simethicone)) 180 mg PO DAILY 20 caps 0RF
[2024-09-24 11:38] VITALS: BP 130/80; PULSE 152; TEMP 36.3; O2SAT 100; BMI 26.5
[2024-09-24 11:58] VITALS: PULSE 86
--- OUTSIDE RECORDS SUMMARY | 2024-09-24 12:11 | XMS_ITS | Patient Health Record ---
Author Organization [facility] Address [address] [address] Care Team Providers Care Director Internal Audit Name Role Phone Annalise Quesada Unavailable [phone] Allergies No Known Allergies Reason For Referral [...] Notes Problem Urinary tract infectious disease (disorder) (09496346) Urinary tract infection, site not specified (N39.0) Active confirmed Problem Chronic inflammatory disease of uterus (N71.1) Active confirmed Problem Excessive and frequent menstruation (994491295) Excessive and frequent menstruation with regular cycle (N92.0) Active confirmed Problem Irregular Menstruation (75801721) Other specified irregular menstruation (N92.5) Active confirmed Plan Of Treatment Pending Test Test Name Order Date Urine Test (In House) 11/24/19 22 ULTSND 1st TRI (TV) 02/04/2022 SONO SHAKE OUT WORKER (TV) 12/03/2021 Future Test Test Name Order Date B-HCG (QUANT) 11/23/2021 Insurance Providers Payer Name Payer Address Payer Phone Subscriber Number Group Number Insured Name Patient Relationship to Insured Coverage Start Date Coverage End Date [employer] ([place]) [address] [address] [place], [place] [id number] Shavon Dai Self - patient is the insured Medical (General) History Medical History History ICD Code Anxiety Surgical History Surgery Date(Month/Year) Laparascopy, hysteroscopy, D and C. repacker mopertubation 05/03/2021 [place] teeth IVF retieval 09/03/2021 IVF retrieval 08/05/2021 IVF retrieval 11/06/2020 hysteroscopy 02/17/2020 IVF retrieval 01/15/2020 IVF retrieval 02/07/2019 IVF retrieval 12/08/2018
== END 2024-09-24 12:26 | disposition home or self-care (01) ==
LOC: HO.HMCH 11:28
DX: E78.00 Pure hypercholesterolemia, unspecified (principal); R00.0 Tachycardia, unspecified; F41.9 Anxiety disorder, unspecified; M79.89 Other specified soft tissue disorders

== ENCOUNTER 2025-01-29 09:57 | Outpatient (REF) | payer OTHER, SELFPAY ==
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
--- OUTSIDE RECORDS SUMMARY | 2025-01-29 11:03 | XMS_ITS | Clinical Summary ---
Author Organization [facility] Address [address] [place] [address] Phone Care Team Providers Care Fresh Foods Technician Name Role Phone Jade Ernst MD Primary Care Provid er Medications cholecalciferol, vitamin D3, 25 mcg (1,000 unit) chewable tablet Take 4,000 Units by mouth. Active levothyroxine (SYNTHROID, LEVOTHROID) 50 MCG tablet 50 mcg. Active PROMETRIUM 200 mg capsule Active progesterone, PF, (PROGESTERONE) 50 mg/mL in cottonwood oil skin test Active progesterone 50 mg/mL injection INJECT 50MG (1ML) INTRAMUSCULARLY ONCE DAILY DIRECTED 04/30/20 24 Active tacrolimus (PROGRAF) 0.5 MG capsule Active enoxaparin (LOVENOX) 40 mg/0.4 mL Syrg subcutaneous syringe INJECT ONE (1) PREFILLED SYRINGE SUBCUTANEOUSLY ONCE DAILY OF DIRECTED Active predniSONE (DELTASONE) 20 MG tablet Active ESTRACE 2 mg tablet Active PLAQUENIL 200 mg tablet 200 mg 2 (two) times a day. Active metFORMIN (GLUCOPHAGE-XR) 500 MG 24 hr tablet Take 1 tablet by mouth every morning. 05/24/19 25 Active prasterone, dhea, 25 mg Cap Take by mouth. Active cholecalciferol 10 mcg (400 unit) chewable tablet Take by mouth. Activ e cyanocobalamin, vitamin B-12, (VITAMIN B-12) 1,000 mcg/mL Drop 100 mcg. 01/09/20 24 Active prenat >1mg FA/selenium ( >1 MG FA-SELENIUM ORAL) 0 Refills, Maintenance, 01/09/24 9:08:00 AM EDT, Partial fill upon patient request if the prescription is for a schedule II opioid drug. 01/09/20 Active diphenhydrAMINE (BENADRYL) 25 mg capsule Take 25 mg by mouth every 6 (six) hours as needed for itching. Active loratadine (CLARITIN) 10 mg tablet Take 10 mg by mouth daily. Active BABY ASPIRIN ORAL Take by mouth. Activ e famotidine (PEPCID) 20 MG tablet Take 20 mg by mouth 2 (two) times a day. 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 06/06/2024 White coat syndrome without diagnosis of hyperte nsion 06/06/2024 Recurrent loss 06/06/2024 Anxiety during 06/06/2024 Overview (06/06/2024): Diagnosed with anxiety as an adolescence Has taken lorazepam and zoloft with good effect Works with a therapist, has done EMDR Reports medical anxiety - hypervigilance around symptoms Has never been hospitalized, no history of self-harm or suicide attempt resulting from in vitro fertilization in first trimester 06/06/2024 Estimated Date of Delivery Comme nts Yes 01/26/2025 Based on Ultraso und Family History Medical History Relation Comments Hyperlipidemia Father Hypertension Father Kidney cancer Maternal Grandmother Stomach cancer Maternal Grandmother Diabetes Mother Hyperlipidemia Mother Heart disease Paternal Grandfather Heart disease Paternal Grandmother Relation Status Comments Father Alive Maternal Grandfather Maternal Grandmother Mother Alive Paternal Grandfather Paternal Grandmother Social History Tobacco Use Types Packs/Day Years Used Date Smoking Tobacco: Never Smokeless Tobacco: Never Tobacco Cessation:Counseling Given: Not Answered Alcohol Use Standard Drinks/Week Comments Not Currently 0 (1 standard drink = 0.6 oz pur e alcohol) Education Answer Date Recorded Are you interested in more education? Not on gerri e 04/18/2024 Are you concerned about learning? Not on file 04/18/2024 No 04/18/2024 No 04/18/2024 Digital Access Answer Date Recorded No 04/18/2024 No 04/18/2024 Reliable internet access at home? Not on file 04/18/2024 Device with a working camera? Not on file Estimated Date of Delivery Comme nts Yes 01/26/2025 Based on Ultraso und Sex and Gender Information Value Date Recorded Sex Assigned at Not on file Legal Sex Female 7:55 AM EST Gender Identity Not on file Sexual Orientation Not on file Last Filed Vital Signs Vital Sign Reading Time Taken Comments Blood Pressure - - Pulse - - Temperature - - Respiratory Rate - - Oxygen Saturation - - Inhaled Oxygen Concentration - - Weight 73.5 kg (162 lb) 06/06/2024 10:04 AM EST Height - - Body Mass Index - - Plan of Treatment Health Maintenance Due Date Last Done Comments Adult Td,Tdap Booster 1979 LIPID PANEL 1979 COVID-19 VACCINE (#1) 1984 DEPRESSION SCREENING 1991 HEPATITIS C SCREENING 1997 HIV ONE-TIME SCREENING (18-65 YEARS) 1997 PNEUMOCOCCAL VACCINES (0-49 years) (1 of 2 - PCV) 1998 PAP SMEAR 2000 MAMMOGRAM 2019 COLOGUARD 2024 COLONOSCOPY 2024 COLORECTAL CANCER SCREENING 2024 FIT TEST 2024 FOBT 2024 SIGMOIDOSCOPY 2024 VIRTUAL COLONOSCOPY 2024 INFLUENZA VACCINE (#1) 2024 RSV VACCINE (1 - Risk 1-dose series) 12/30/2024 CREATININE LEVEL 06/07/2025 06/07/2024, 05/2024, 05/25/2024 TSH LEVEL 06/07/2025 06/07/2024, 02/0 05/2024, 05/25/2024, Additional history exists SMOKING STATUS SCREENING (Once After 26 Yrs) Completed 06/06/2024 HEPATITIS A VACCINES Aged Out No long er eligible based on patient's age to complete this topic HIB VACCINES Aged Out No longer eligi ble based on patient's age to complete this topic MENINGOCOCCAL VACCINES (ACWY) Aged Out No longer eligible based on patient's age to complete this topic MENINGOCOCCAL VACCINES (B) Aged Out N o longer eligible based on patient's age to complete this topic Medical Devices Not on file Procedures Procedure Name Priority Date/Time Associated Diagnosis Comments TSH STAT 06/07/2024 9:02 AM EST care of habitual aborter in 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 Chronic inflammatory disease of uterus, except cervix Nabothian gland cyst Endometriotic cyst Uterine leiomyoma, unspecified location COMPREHENSIVE METABOLIC PANEL STAT 06/07/2024 9:02 AM EST care of habitual aborter in 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 Chronic inflammatory disease of uterus, except cervix Nabothian gland cyst Endometriotic cyst Uterine leiomyoma, unspecified location from Last 3 Months or Most Recently Relevant to Health Maintenance Results * Comprehensive metabolic panel (06/07/2024 9:02 AM EST) SODIUM 134 133 - 146 mmol/L [facility] POTASSIUM 3.7 3.3 - 5.1 mmol/L [facility] CHLORIDE 100 96 - 108 mmol/L [facility] CO2 22 21 - 35 mmol/L [facility] BUN 9 6 - 19 mg/dL [facility] CREATININE 0.80 0.5 - 1.5 mg/dL [facility] GLUCOSE 93 70 - 99 mg/dL [facility] ALBUMIN 3.9 3.9 - 4.8 g/dL [facility] TOTAL PROTEIN 6.8 6.5 - 8.0 g/dL [facility] CALCIUM 9.2 8.4 - 10.3 mg/dL [facility] ALKALINE PHOSPHATASE 39 39 - 117 U/L [facility] TOTAL BILIRUBIN <0.2 0.0 - 1.2 mg/dL [facility] AST 16 0 - 37 U/L [facility] ALT 23 0 - 40 U/L [facility] GLOBULIN 2.9 1 - 4.8 g/dL [facility] EGFR 93 >59 mL/min/1.7 3m2 [facility] Comment:Estimated glomerular filtration rate calculated using the CKD-EPI refit equation. ANION GAP 16 10 - 20 mmol/L [facility] Blood 06/07/2024 9:02 AM EST 06/07/2024 9:07 AM EST us Andres Wallis MD LAB BLOOD ORDE RABLES Final Result Performing Organization Address City/[facility]/ZIP Co de Phone Number [address] [address] * TSH (06/07/2024 9:02 AM EST) TSH 1.63 0.27 - 4.20 uIU/mL [facility] Blood 06/07/2024 9:02 AM EST 06/07/2024 9:07 AM EST Andres Wallis MD LAB BLOOD ORDE RABLES Final Result Performing Organization Address City/[facility]/ZIP Co de Phone Number [address] [phone] from Last 3 Months or Most Recently Relevant to Health Maintenance Insurance JHON PPO JHON PPO CIG PPO CIG PPO CIGNA PPO Member Subscriber Plan / Payer (Ef fective 2023-Present) Name:Shavon Dai Relation to Subscriber:Self Name:Shavon Dai Payer ID:[id number] ([facility]) Type:PPO Address: [address] [place] [id number] [facility] Care Teams Fresh Foods Technician Relationship Specialty Start Date End Date Jade Ernst MD [address] [place] [address] PCP - General Internal Medicine 04/18/24 Additional Source Comments The information contained in this document represents components of the legal health record. It is not the complete legal health record.[facility]
--- OUTSIDE RECORDS SUMMARY | 2025-01-29 11:03 | XMS_ITS | Patient Health Record ---
Author Organization [facility] Address [address] [facility] [address] [place] [address] Care Team Providers Care Restaurant Supervisor Name Role Phone TrumanalbertShaun Primary Care Provider Unavailabl e Migration, Provider Unavailable Unavailable Reason For Referral No Information Immunizations Vaccine Route Administration Date Status Comme nts Influenza, trivalent ID Intradermal 03/10/2015 Administered ,sourcename : New immunization record ,immstatus : Complete Source VFC Code: : Influenza, trivalent Unknown 03/20/2017 Others ,sourcename : Historical information -from other registry Source VFC Code: : Varicella (Chicken Pox)Varicella virus vaccine (DERECK), live, for subcutaneous use Unknown 08/17/2016 Others ,sourcename : Historical information -from other registry Source VFC Code: : Social History Social History Additional Details Category Social Info Options Details Social History Migrated Social History Alcohol history:Currently drinks alcohol , Frequency of drinks:Drinks rarely , Tobacco history:Never smoker Problems Problem Type SNOMED Code ICD Code Onset Dates Problem Status W/U Status Risk Notes Problem Leukopenia (56498485) Decreased white blood cell count, unspecified (D72.819) 018 Active confirmed Problem Mixed hyperlipidemia (867074168) Mixed hyperlipidemia (E78.2) Active confirmed low chol diet Problem Fear of flying (534688243) Fear of flying (F40.243) Active confirmed Problem Anxiety disorder (265157536) Anxiety disorder, unspecified (F41.9) 021 Active confirmed ativan prn, wean off wellbutri n, start lexapro 5 mg Problem Pain in wrist (17622194) Pain in left wrist (M25.532) 018 Active confirmed Problem Pain of left hip joint (finding) (519402977856154) Pain in left hip (M25.552) Active confirmed Problem Pain in limb (33079437) Pain in left finger(s) (M79.645) Active confirmed Problem Pain in left foot (303652904736345) Pain in left foot (M79.672) Active confirmed Problem Adult health examination (209095349) Encounter for general adult medical examination without abnormal findings (Z00.00) Active confirmed Problem Problem, abnormal examination (51619300) Encounter for general adult medical examination with abnormal findings (Z00.01) Active confirmed Problem Vaccination not done (situation) (63933695840388) Immunization not carried out for other reason (Z28.89) Active confirmed Problem BMI 25-29 - overweight (182227327) Body mass index (BMI) 25.0-25.9, adult (Z68.25) Active confirmed Problem Body mass index 25-29 - overweight (383498795) Body mass index (BMI) 26.0-26.9, adult (Z68.26) Active confirmed Encounters Encounter Location Date Provider Diagnosis [address] [place] [address] 09/07/2024 Provider Migration [facility] [address] [place] [address] [address] [place] [address] 09/08/2024 Provider Migration Plan Of Treatment No Information Insurance Providers Payer Name Payer Address Payer Phone Subscriber Number Group Number Insured Name Patient Relationship to Insured Coverage Start Date Coverage End Date BC/[facility]/B lue Options [address] [place] [address] [id number] Shavon Dai Self - patient is the insured 1 Medical (General) History Surgical History Surgery Date(Month/Year) wisdom tooth/teeth extraction 1998
[2025-01-29 11:45] LABS: Alanine Aminotransferase 22 U/L (0-31); Albumin Level 4.5 g/dL (3.5-5.0); Alkaline Phosphatase 36 U/L (39-117); Anion Gap 13 (12-20); Aspartate Amino Transferase 22 U/L (5-31); Blood Urea Nitrogen 13 mg/dL (9-16); Calcium 9.0 mg/dL (8.4-10.2); Carbon Dioxide 24 mmol/L (22-29); Chloride 108 mmol/L (96-108); Estimated Glomerular Filt Rate > 60; Potassium 4.6 mmol/L (3.3-5.1); Sodium 140 mmol/L (135-145); Total Protein 7.1 g/dL (6.5-8.0)
[2025-01-29 12:00] LABS: Hemoglobin A1C 151.6142 umol/L; Total Hemoglobin (HGBA1C) 3951.3514 umol/L
[2025-01-29 12:23] LABS: Vitamin B12 694 pg/mL (200-900)
[2025-01-29 12:24] LABS: Folate > 20.0 ng/mL (> or = 4.0)
== END 2025-01-29 09:58 | disposition home or self-care (01) ==
LOC: HO.10HDL 09:57
DX: Z00.00 Encounter for general adult medical examination without abnormal findings (principal); Z13.29 Encounter for screening for other suspected endocrine disorder; Z13.1 Encounter for screening for diabetes mellitus; Z13.21 Encounter for screening for nutritional disorder; R03.0 Elevated blood-pressure reading, without diagnosis of hypertension; R79.89 Other specified abnormal findings of blood chemistry; N97.9 Female infertility, unspecified
CPT/HCPCS: 36415; 80053; 82306; 82607; 82746; 83036; 84443

== ENCOUNTER 2025-01-31 10:01 | Outpatient (REF) | payer OTHER, SELFPAY ==
--- OUTSIDE RECORDS SUMMARY | 2025-01-31 10:45 | XMS_ITS | Patient Health Record ---
Author Organization [facility] Address [address] [facility] [address] [place] [address] Care Team Providers Care Clerical Warehouseman Name Role Phone TrumanalbertShaun Primary Care Provider [...] Status W/U Status Risk Notes Problem Leukopenia (91493201) Decreased white blood cell count, unspecified (D72.819) 018 Active confirmed Problem Mixed hyperlipidemia (229579728) Mixed hyperlipidemia (E78.2) Active confirmed low chol diet Problem Fear of flying (553313596) Fear of flying (F40.243) Active confirmed Problem Anxiety disorder (314877172) Anxiety disorder, unspecified (F41.9) 021 Active confirmed ativan prn, wean off wellbutri n, start lexapro 5 mg Problem Pain in wrist (42111162) Pain in left wrist (M25.532) 018 Active confirmed Problem Pain of left hip joint (finding) (547795277059169) Pain in left hip (M25.552) Active confirmed Problem Pain in limb (37759402) Pain in left finger(s) (M79.645) Active confirmed Problem Pain in left foot (285697929516700) Pain in left foot (M79.672) Active confirmed Problem Adult health examination (864493318) Encounter for general adult medical examination without abnormal findings (Z00.00) Active confirmed Problem Problem, abnormal examination (09545924) Encounter for general adult medical examination with abnormal findings (Z00.01) Active confirmed Problem Vaccination not done (situation) (91595311133172) Immunization not carried out for other reason (Z28.89) Active confirmed Problem BMI 25-29 - overweight (251246343) Body mass index (BMI) 25.0-25.9, adult (Z68.25) Active confirmed Problem Body mass index 25-29 - overweight (201130728) Body mass index (BMI) 26.0-26.9, adult (Z68.26) Active confirmed Encounters Encounter Location Date Provider Diagnosis [address] [place] [address] 09/07/2024 Provider Migration [facility] [address] [place] [address] [address] [place] [address] 09/08/2024 Provider Migration Plan Of Treatment No Information Insurance Providers Payer Name Payer Address Payer Phone Subscriber Number Group Number Insured Name Patient Relationship to Insured Coverage Start Date Coverage End Date BC/[facility]/B lue Options [address] [place] [address] [id number] Shavon Dai Self - patient is the insured 1 Medical (General) History Surgical History Surgery Date(Month/Year) wisdom tooth/teeth extraction 1998
--- OUTSIDE RECORDS SUMMARY | 2025-01-31 10:45 | XMS_ITS | Clinical Summary ---
Author Organization [facility] Address [address] [place] [address] Phone Care Team Providers Care Power Lineworker Name Role Phone Jade Ernst MD Primary [...] VIRTUAL COLONOSCOPY 2024 INFLUENZA VACCINE (#1) 2024 CREATININE LEVEL 06/07/2025 06/07/2024, 05/2024, 05/25/2024 TSH [...] on patient's age to complete this topic RSV VACCINE (No Doses Required) Completed Medical Devices Not on file Procedures Procedure [...] EST) SODIUM 134 133 - 146 mmol/L [facility] POTASSIUM 3.7 3.3 - 5.1 mmol/L [facility] CHLORIDE 100 96 - 108 mmol/L [facility] CO2 22 21 - 35 mmol/L [facility] BUN 9 6 - 19 mg/dL [facility] CREATININE 0.80 0.5 - 1.5 mg/dL [facility] GLUCOSE 93 70 - 99 mg/dL [facility] ALBUMIN 3.9 3.9 - 4.8 g/dL [facility] TOTAL PROTEIN 6.8 6.5 - 8.0 g/dL [facility] CALCIUM 9.2 8.4 - 10.3 mg/dL [facility] ALKALINE PHOSPHATASE 39 39 - 117 U/L [facility] TOTAL BILIRUBIN <0.2 0.0 - 1.2 mg/dL [facility] AST 16 0 - 37 U/L [facility] ALT 23 0 - 40 U/L [facility] GLOBULIN 2.9 1 - 4.8 g/dL [facility] EGFR 93 >59 mL/min/1.7 3m2 [facility] Comment:Estimated glomerular filtration rate calculated using the CKD-EPI refit equation. ANION GAP 16 10 - 20 mmol/L [facility] Blood 06/07/2024 9:02 AM EST 06/07/2024 9:07 AM EST us Andres Wallis MD LAB BLOOD ORDE RABLES Final Result [address] [address] * TSH (06/07/2024 9:02 AM EST) TSH 1.63 0.27 - 4.20 uIU/mL [facility] Blood 06/07/2024 9:02 AM EST 06/07/2024 9:07 AM EST us Andres Wallis MD LAB BLOOD ORDE RABLES Final Result Performing Organization Address City/[facility] Co de Phone Number [address] [address] from Last 3 Months or Most Recently Relevant to Health Maintenance Insurance JHON PPO JHON PPO CIGNA PPO CIGNA PPO CIGNA PPO CIGANU PPO Care Teams Power Lineworker Relationship Specialty Start Date End Date Jade Ernst MD [address] [place] [address] PCP - General Internal Medicine 04/18/24 Additional Source Comments The information contained in this document represents components of the legal health record. It is not the complete legal health record.[facility]
[2025-01-31 14:34] LABS: Cholesterol 287 mg/dL (<200); HDL Cholesterol 42 mg/dL (>40); Triglycerides 91 mg/dL (<150)
== END 2025-01-31 10:02 | disposition home or self-care (01) ==
LOC: HO.10HDL 10:01
DX: Z00.00 Encounter for general adult medical examination without abnormal findings (principal); R79.89 Other specified abnormal findings of blood chemistry; E78.00 Pure hypercholesterolemia, unspecified
CPT/HCPCS: 36415; 80061

== ENCOUNTER 2025-02-04 09:58 | Outpatient (AMB) | payer OTHER, SELFPAY ==
--- OUTSIDE RECORDS SUMMARY | 2015-03-19 05:48 | XMS_ITS | Continuity of Care Document ---
Author Organization [facility] Address [address] [place] [address] Phone Care Team Providers Care Racing Mechanic Name Role Phone Jeferson Vang MD Unavailable [...] For Reporting Only 3 Offic/outpt E&m Estab [facility] 2 12 Offic/outpt E&m Estab Minor 10 12 Cl Follow Up Determ Refractive State Offic/outpt E&m Estab [facility] 2 Cl Follow Up Cl Follow Up Ophth Serv Med Exam Comp Est Toric Gas Perm Determ Refractive State Ua Dip Stik/tablet; Wo Micro A 11 Preven Meds E&m Estab Pt; 18-3 11 Offic/outpt E&m Estab [facility] 2 11 Offic/outpt E&m Estab [facility] 2 11 Offic[facility]pt [facility] Offic/outpt E&m Estab [facility] 2 10 Offic/outpt E&[facility] Offic/outpt E&m Estab Low-mod 9 Offic/outpt E&m Estab Low-mod 9 Offic/outpt E&m Estab Low-mod 9 Offic/outpt [facility] 9 Offic/outpt [facility] 9 Cl Follow Up Cl Follow Up [...] Diagnoses Date Provider Providers Copied on Encounter [facility], [address] [place] [address], [facility], tel:[phone] Primary Care [facility] No Information 5 Ciera Govea. [facility], [address] [place] [address], [id number], [place]. tel:[phone] [facility], [address] [place] [address], [facility] [place] [facility], [place] tel:[phone] [facility] No Information 5 No Information Offic/outpt E&m Estab Mod-hi 2 [facility], [address] [place] [address], [facility], [place] tel:[phone] [facility] Insomnia (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) AnxietyInsom moriah 5 No Information Offic/outpt E&m Estab Low-mod [facility], [address] [place] [address], [facility], [place] tel:[phone] [facility] Anxiety (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) Body Mass Index between 19-24,Anxiet y 5 No Information Offic/outpt E&m Estab 5 Min [facility], [address] [place] [address], [facility], [place] tel:[phone] [facility] Flu vaccine need 4 No Information [facility], [address] [place] [address], [facility], [place] tel:[phone] [facility] Routine Medical Exam 4 No Information Offic/outpt E&m Estab Mod-hi 2 [facility], [address] [place] [address], [facility], [place] tel:[phone] [facility] wrist pain (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) Wrist painBody Mass Index between 19-24, 4 No Information [facility], [address] [place] [address], [facility], [place] tel:[phone] [facility] [place] No Information 4 No Information Offic/outpt E&m Estab Mod-hi 2 [facility], [address] [place] [address], [id number], [place] tel:[phone] [facility] [place] foot complaint (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) Left foot painScreenin g for condition 4 No Information Offic/outpt E&m Estab Mod-hi 2 [facility], [address] [place] [address], [id number], [place] tel:[phone] [facility] [place] discuss stopping medications (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)danielle int pain (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) AnxietyMulti ple joint pain 4 No Information [facility], [address] [place] [address], [id number], [place] tel:[phone] [facility] Astigmatism 3 No Information [facility], [address] [place] [address], [id number], [place] tel:[phone] [facility] [place] Astigmatism 3 No Information [facility], [address] [place] [address], [id number], [place] tel:[phone] [facility] [place] Astigmatism 3 No Information Preven Meds E&m Estab Pt; 18-3 [facility], [address] [place] [address], [address], [place] tel:[phone] [facility] physical exam (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) Routine Medical ExamBody Mass Index between 19-24,Anxiet y State NosRoutine Medical Exam 3 No Information Offic/outpt E&m Estab Mod-hi 2 [facility], [address] [place] [address], [id number], [place] tel:[phone] [facility] [place] depression (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) Depression with anxiety 2 No Information [facility], [address] [place] [address], [id number], [place] tel:[phone] [facility] Vitamin D deficiency 2 No Information Offic/outpt E&m Estab Minor 10 [facility], [address] [place] [address], [address], [place] tel:[phone] [facility] [place] Astigmatism 2 No Information Offic/outpt E&m Estab Low-mod [facility], [address] [place] [address], [id number], [place] tel:[phone] Urgent Care upper respiratory symptoms (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) Acute Sinusitis NosBody Mass Index between 19-24, 2 Arnulfo Nava. [facility], [address] [place] [address], [id number], [place]. tel:[phone] [facility], [address] [place] [address], [id number], [place] tel:[phone] [facility] Astigmatism 2 No Information [facility], [address] [place] [address], [address], [place] tel:[phone] [facility] Astigmatism 1 No Information [facility], [address] [place] [address], [address], [place] tel:[phone] [facility] Astigmatism 1 No Information Preven Meds E&m Estab Pt; 18-3 [facility], [address] [place] [address], [id number], [place] tel:[phone] Primary Care [facility] physical exam (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) Routine Medical ExamRoutine Medical ExamJoint Pain-shlderA nxiety State Nos 1 No Information Offic/outpt E&m Estab Mod-hi 2 [facility], [address] [place] [address], [id number], [place] tel:[phone] Primary Care [facility] depression (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) No Information 1 No Information Offic/outpt E&m Estab Mod-hi 2 [facility], [address] [place] [address], [address], [place] tel:[phone] Primary Care [facility] depression (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) Depressive Disorder NecFamily Planning Advice 1 No Information Offic/outpt E&m Estab [facility], [address] [place] [address], [facility], tel:[phone] Primary [facility] [place] med for menstraul cramps (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)sk in disorder (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) No Information 0 No Information Offic/outpt E&m Estab [facility], [address] [place] [address], [facility], tel:[phone] [facility] [place] anxiety (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)PA P test (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) No Information 0 No Information Offic/outpt E&m Estab [facility], [address] [place] [address], [facility], [place] tel:[phone] [facility] [place] anxiety (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) No Information 0 No Information Offic/outpt E&m Estab [facility], [address] [place] [address], [facility], [place] tel:[phone] [facility] [place] anxiety (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) No Information 9 No Information Offic/outpt E&m [facility], [address] [place] [address], [facility], tel:[phone] Primary [facility] [place] anxiety (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) No Information 9 No Information Offic/outpt E&m Estab [facility], [address] [place] [address], [facility], [place] tel:[phone] 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) No Information 9 No Information Offic/outpt E&m Estab [facility], [address] [place] [address], [facility], tel:[phone] [facility] [place] anxiety (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) No Information 9 No Information Offic/outpt E&m Estab [facility], [address] [place] [address], [facility], [place] tel:[phone] Primary [facility] [place] FVC (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) No Information 2 6-200 9 No Information [facility], [address] [place] [address], [facility], tel:[phone] [facility] [place] No Information Jan-2 0-200 8 No Information [facility], [address] [place] [address], [facility], tel:[phone] [facility] [place] No Information Jan-0 6-200 8 No Information [facility], [address] [place] [address], [facility], [place] tel:[phone] [facility] [place] No Information Dec-0 8-200 8 No Information Offic/outpt E&m Estab [address], [address] [place] [address], [facility], tel:[phone] [facility] [place] No Information 2 2-200 8 No Information Offic/outpt E&m Estab [address], [address] [place] [address], [facility], tel:[phone] Urgent Care laceration (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) Finger Laceration Apr-2 4-200 7 Gt Zeng. [facility], [address] [place] [address], [address] [place] [address], . tel:[phone] [facility], [address] [place] [address], [facility], tel:[phone] Rad[facility] [place] No Information Jun-1 2-200 7 No Information Offic/outpt E&m Estab [address], [address] [place] [address], [facility], tel:[phone] [facility] [place] muscular (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) [...] Order: Lab Order Hepatic Function Panel (7) ([id number]), Sent on: Sent Future Order: Lab Order Vitamin D, 25-Hydroxy ([id number]), Sent on: Sent History Of Present Illness [...]
--- NOTE | 2025-02-04 10:02 | A.OFFPC_ITS ---
Vital Signs 02/04/25 10:03 02/04/25 10:33 Height 5 ft 7 in Weight 164 lb 6 oz BMI 25.7 BP 130/90 H Blood Pressure Location Lt brachial Position Sitting Pulse 143 H 90 Pulse Source Pulse Oximeter Auscultation Temp 97.5 F Temp Source Temporal Artery Scan Pulse Oximetry (%) 100 Oxygen Delivery Method Room Air Intake Visit Reasons: annual exam Intake Note: Patient is here today for a physical. Index Clerk Required: No Inspector Precision Assembly: Not Required per policy Accompanied by: Self / Same As Patient Allergies simvastatin Adverse Reaction (Intermediate, Verified 02/04/25 10:10) Sore muscle Medication List - Last Reconciled 02/04/25 by Diane Vazquez PA-C hydroxyzine HCl 75 mg (3 x 25 mg) PO BEDTIME levothyroxine 50 mcg PO DAILY sertraline 25 mg PO DAILY simethicone (Gas Relief (simethicone)) 180 mg PO DAILY Tobacco use date assessed: 02/04/25 Dental Screening Dental Screen Date: 06/26/24 HPI annual exam HPI Details 44-year-old female with past medical his tory of hypercholesterolemia and anxiety last seen 08/2024 coming in for annual exam. Presenting for an annual wellness visit. Planning a frozen embryo transfer between March and March with Dr. Perez. Anxiety Managed with sertraline, which the patient reports is effective. She has been discussing with her fertility specialist and was advised to avoid the use of lipid lowering medications during the process of the frozen embryo transfer. mammogram: 01/2025 colonoscopy: Cologuard ordered pap smear: RUST 2023 vaccines: [facility] Medical History History of in vitro fertilization Uterine polyp Surgical History History of D&C History of hysteroscopy Family History Mother Diabetes mellitus High cholesterol Father High blood pressure High cholesterol Social History Housing: House Alcohol intake: never Patient Tobacco Use Status: Never used Tobacco e-Cigarette/Vaping Use: Never Used Second Hand Smoke Exposure: No service: No Current occupational status: student Current occupation: Cognitive needs: No Hearing needs: No Vision needs: Yes (Glasses) Questionnaire PHQ-9 Over the last 2 weeks, how often have you been bothered by any of the following problems? 1. Little interest or pleasure in doing things: not at all 2. Feeling down, depressed, or hopeless: not at all 3. Trouble falling or staying asleep, or sleeping too much: several days 4. Feeling tired or having little energy: not at all 5. Poor appetite or overeating: not at all 6. Feeling bad about yourself - or that you are a failure or have let yourself or your family down: not at all 7. Trouble concentrating on things, such as reading the newspaper or watching television: not at all 8. Moving or speaking so slowly that other people could have noticed. Or the opposite - being so fidgety or restless that you have been moving around a lot more than usual: not at all 9. Thoughts that you would be better off or of hurting yourself in some way: not at all Total score: 1 Depression Screening Interpretation: Negative Depression Screening Done: Yes Source: Developed by Drs. Martin Anthony, Suly Stevenson, Young Braswell and colleagues, with an educational sherine from [employer]. Thrive Questionnaire Date Thrive assessed: 06/26/24 I am a: Patient What is your living situation today?: I have a steady place to live Within the past 12 months, did the food you bought not last and you didn't have the money to get more?: Never true Within the past 12 months, did you worry whether your food would run out before you got money to buy more?: Never true Do you have trouble paying for medicines?: No Do you have trouble getting transportation to medical appointments?: No Do you have trouble paying your heating and electricity bill?: No Do you have trouble taking care of your child, family member or friend?: No Do you have trouble with day-to-day activities such as bathing, preparing meals, shopping, managing finances, etc.?: No Are you currently unemployed and looking for a job?: No Are you interested in more education?: No Please select the resources that you would like help with: None Currently or been in a relationship where the following occur: No concerns reported THRIVE Score: 0 DOLLY-7 AMB Questionnaire DOLLY-7 Date DOLLY - 7 assessed: 09/24/24 Feeling nervous, anxious, or on edge: 1 = Several days Not being able to stop or control worryin = Several days Worrying too much about different things: 1 = Several days Trouble relaxin = Not at all Being so restless that it is hard to sit still: 0 = Not at all Becoming easily annoyed or irritable: 0 = Not at all Feeling afraid as if something awful might happen: 1 = Several days Total DOLLY-7 score (0-4 normal; 5-9 mild; 10-14 moderate; 15-21 severe): 4 Source: Developed by Drs. Martin Anthony, Suly Stevenson, Young Braswell and colleagues, with an educational sherine from [employer]. Review of Systems Const Denies body aches, Denies fatigue, Denies fever(s), Denies frequent falls, Denies headache(s) and Denies weakness Eyes Reports no additional complaints and Denies change in vision ENT Denies dysphagia, Denies dizziness, Denies facial pain, Denies headache(s), Denies nasal congestion and Denies odynophagia Card Denies chest pain, Denies syncope, Denies irregular heart rhythm, Denies leg edema, Denies lightheadedness and Denies dyspnea Resp Denies cough and Denies dyspnea GI Denies constipation, Denies dysphagia, Reports dyspepsia, Denies diarrhea, Denies nausea, Denies odynophagia and Denies vomiting Denies urinary frequency, Denies dysuria, Denies urinary hesitancy and Denies urinary urgency Musc Denies back pain and Denies myalgias Skin/Breast Reports system reviewed and no additional complaints, except as documented Neuro Denies dizziness, Denies syncope, Denies frequent falls, Denies headache(s) and Denies weakness Psych Reports no additional complaints Endo Denies fatigue Physical exam (Primary Care) Vital Signs: Last Vital Signs Temp 97.5 F 02/04/25 10:03 Pulse 90 02/04/25 10:33 BP 130/90 H 02/04/25 10:03 Pulse Ox 100 02/04/25 10:03 Oxygen Delivery Method Room Air 02/04/25 10:03 BMI result Body Mass Index 25.7 Tobacco/Smoking Status: Tobacco use Status Tobacco use date assessed 02/04/25 02/04/25 10:08 Patient Tobacco Use Status Never used Tobacco 02/04/25 10:08 e-Cigarette/Vaping Use Never Used 02/04/25 10:08 PHQ-9: PHQ-9 Score PHQ-9: Total score 1 02/04/25 12:44 Depression Screening Interpretation: Negative Thrive Assessment: Date of Thrive Assessment Date Thrive assessed 06/26/24 02/04/25 10:08 Currently or been in a relationship where the following occur: No concerns reported Const General: cooperative, healthy appearing, comfortable and no acute distress Orientation/consciousness: patient oriented x3 HENMT Head: Yes normocephalic Ears: hearing grossly normal bilaterally, external ears normal, TM's normal bilaterally and EAC's normal General nose exam: Normal external nose present Face and sinus: Yes normal facial exam and Yes sinuses nontender Mouth: Normal oral and palatal mucosa present and tongue normal Throat: Yes posterior oropharynx normal Eyes General: appearance normal, both eyes and all related structures Conjunctivae: conjunctivae normal Pupils: Equal, round and reactive pupils present EOM: EOMs intact bilaterally and No Nystagmus present Neck Neck: Yes normal visual inspection, Yes full ROM and Yes no lymphadenopathy Chest Chest palpation & inspection: normal inspection of the chest Resp Effort & Inspection: normal respiratory effort Auscultation: clear to auscultation bilaterally, no crackles, no rales, no rhonchi, no wheezes and breath sounds present Cardio Rate: regular rate Rhythm: regular rhythm Peripheral pulses: radial pulses present and dorsalis pedis present GI Inspection: Yes normal to inspection and No Abdominal wall edema Palpation (GI): Soft to palpation, not firm and nontender Auscultation: normal bowel sounds Rectal Exam - Female: deferred General: Yes no CVA tenderness Back/Spine/Pelvis Back: no CVA tenderness Skin General skin exam: no rashes or lesions noted Neuro General: patient oriented x3 Cranial nerves: Yes Equal, round and reactive pupils present, Yes Midline tongue present, Yes Ability to bilaterally elevate shoulders present and No Nystagmus present Gait exam (Neuro): Normal gait present Extrem General: Yes normal to inspection, Yes full ROM, No no pedal edema and No edema Psych Speech and movement: Normal speech and movement present Affect: normal affect Insight: Good insight present (Psych) Judgement: Good judgement present (Psych) Coding Level of Care Code Dorothy Pt Prev Care 40-64y([id number]) Diagnoses Annual physical exam Z00.00 Anxiety F41.9 Elevated blood pressure reading R03.0 Hypercholesterolemia E78.00 Elevated LFTs R79.89 Infertility, female N97.9 Colon cancer screening Z12.11 Assessment & Plan Assessment & Plan (1) Annual physical exam: Code(s): Z00.00 - Encounter for general adult medical examination without abnormal findings Category: Medical Plan: Patient is up-to-date on all recommended routine screenings and vaccinations for her age. Healthy diet and regular exercise is encouraged. Blood work is up-to-date and has been reviewed with the patient today. (2) Anxiety: Code(s): F41.9 - Anxiety disorder, unspecified Category: Medical Plan: Anxiety has been improving with the use of sertraline and hydroxyzine as needed. (3) Elevated blood pressure reading: Code(s): R03.0 - Elevated blood-pressure reading, without diagnosis of hypertension Category: Medical Plan: Patient's blood pressure is elevated in the office today however she does monitor the blood pressures at home which has been within normal limits less than 140/90. She endorses high anxiety when coming into the office. (4) Hypercholesterolemia: Code(s): E78.00 - Pure hypercholesterolemia, unspecified Category: Medical Plan: Avoid foods that are high in cholesterol such as red meat, fried foods, eggs and baked goods. Triglyceride goal of less than 150 and LDL goal of less than 130. LDL remains elevated and discussed this with the patient. She is currently working with a fertility specialist and is undergoing IVF in the coming months. She was advised by her specialist to avoid the use of statins and I am in agreement. Discussed dietary and lifestyle modification and continue to monitor at this time. (5) Elevated LFTs: Code(s): R79.89 - Other specified abnormal findings of blood chemistry Category: Medical Plan: Healthy diet and regular exercise is encouraged. (6) Infertility, female: Code(s): N97.9 - Female infertility, unspecified Category: Medical Plan: Continue to follow with fertility specialist at this time. Plan for frozen embryo transfer March. (7) Colon cancer screening: Code(s): Z12.11 - Encounter for screening for malignant neoplasm of colon Category: Medical Plan: Cologuard ordered today. Plan This note was constructed using voice recognition software. While every effort has been made to ensure accuracy and cleaning and washing equipment operator, still areas may have been included sometimes these areas may affect the content or meeting of the given symptoms. Total time spent caring for the patient today was 30 minutes. This includes time spent before the visit reviewing the chart, time spent during the visit, and time spent after the visit and documentation. Patient was informed and verbally consented to the use of an ambient scribe for clinic note documentation during this visit. Orders: Referrals Cologuard Test Z12.11 - Encounter for screening for malignant neoplasm of colon
[2025-02-04 10:03] VITALS: BP 130/90; PULSE 143; TEMP 36.4; O2SAT 100; BMI 25.7
[2025-02-04 10:33] VITALS: PULSE 90
--- OUTSIDE RECORDS SUMMARY | 2025-02-04 11:41 | XMS_ITS | Patient Health Record ---
Author Organization [facility] Address [address] [facility] [address] [place] [address] Care Team Providers Care Calendering Supervisor Name Role Phone TrumanalbertShaun Primary Care [...] Status W/U Status Risk Notes Problem Leukopenia (66433977) Decreased white blood cell count, unspecified (D72.819) 018 Active confirmed Problem Mixed hyperlipidemia (826478151) Mixed hyperlipidemia (E78.2) Active confirmed low chol diet Problem Fear of flying (820240888) Fear of flying (F40.243) Active confirmed Problem Anxiety disorder (468453511) Anxiety disorder, unspecified (F41.9) 021 Active confirmed ativan prn, wean off wellbutri n, start lexapro 5 mg Problem Pain in wrist (48673457) Pain in left wrist (M25.532) 018 Active confirmed Problem Pain of left hip joint (finding) (607296823681800) Pain in left hip (M25.552) Active confirmed Problem Pain in limb (55343056) Pain in left finger(s) (M79.645) Active confirmed Problem Pain in left foot (245751021945331) Pain in left foot (M79.672) Active confirmed Problem Adult health examination (395276955) Encounter for general adult medical examination without abnormal findings (Z00.00) Active confirmed Problem Problem, abnormal examination (36329866) Encounter for general adult medical examination with abnormal findings (Z00.01) Active confirmed Problem Vaccination not done (situation) (73872873578906) Immunization not carried out for other reason (Z28.89) Active confirmed Problem BMI 25-29 - overweight (738371399) Body mass index (BMI) 25.0-25.9, adult (Z68.25) Active confirmed Problem Body mass index 25-29 - overweight (831541037) Body mass index (BMI) 26.0-26.9, adult (Z68.26) Active confirmed Encounters Encounter Location Date Provider Diagnosis [address] [place] [address] 09/07/2024 Provider Migration [facility] [address] [place] [address] [address] [place] [address] 09/08/2024 Provider Migration Plan Of Treatment No Information Insurance Providers Payer Name Payer Address Payer Phone Subscriber Number Group Number Insured Name Patient Relationship to Insured Coverage Start Date Coverage End Date BC/[facility]/B lue Options [address] [place] [address] [phone] [id number] Shavon Dai Self - patient is the insured 1 Medical (General) History Surgical History Surgery Date(Month/Year) wisdom tooth/teeth extraction 1998
== END 2025-02-04 10:43 | disposition home or self-care (01) ==
LOC: HO.HMCH 09:59
DX: Z00.00 Encounter for general adult medical examination without abnormal findings (principal); F41.9 Anxiety disorder, unspecified; R03.0 Elevated blood-pressure reading, without diagnosis of hypertension; E78.00 Pure hypercholesterolemia, unspecified; R79.89 Other specified abnormal findings of blood chemistry; N97.9 Female infertility, unspecified; Z12.11 Encounter for screening for malignant neoplasm of colon